=== PATIENT | female | born 1970 | race African-American/Black ===

== ENCOUNTER 2018-06-22 11:26 | Inpatient (IN) | payer OTHER ==
[2018-06-22 13:29] VITALS: BMI 26.7
--- NOTE | 2018-06-22 15:21 | HP ---
CIWA Score Nausea/Vomitin Muscle Tremors: 2 Anxiety: 2 Agitation: 2 Paroxysmal Sweats: 1-Minimal Palms Moist Orientation: 0-Oriented Tacttile Disturbances: 1-Very Mild Itch/Numbness Auditory Disturbances: 1-Very Mild Visual Disturbances: 1-Very Mild Sensitivity Headache: 2-Mild CIWA-Ar Total Score: 14 - Admission Criteria [facility] Guidelines: Admission for Medically Managed Detox: Requires at least one of the followin. CIWA greater than 12 2. Seizures within the past 24 hours 3. Delirium tremens within the past 24 hours 4. Hallucinations within the past 24 hours 5. Acute intervention needed for co occurring medical disorder 6. Acute intervention needed for co occurring psychiatric disorder 7. Severe withdrawal that cannot be handled at a lower level of care (continued vomiting, continued diarrhea, abnormal vital signs) requiring intravenous medication and/or fluids 8. Patient presents the following: CIWA greater than 12, Acute intervention needed for co-occurring med or psych disorder Admission Criteria Met: Admission criteria met Admission ROS S - HPI Chief Complaint: i need help to stop drinking alcohol and cocaine Allergies/Adverse Reactions: Allergies Allergy/AdvReac Type Severity Reaction Status Date / Time No Known Drug Allergies Allergy Verified 06/22/18 15:42 chicken derived AdvReac Severe Vomiting Verified 06/22/18 15:42 Fish Containing Products AdvReac Severe Vomiting Verified 06/22/18 15:42 History of Present Illness: this 48 years old female with alcohol and cocaine dependence,seeking detox, withdrawal symptom,last detox [facility] 04/19/15 to 04/29/15 hypertension on med nicotine dependence bipolar disorder longest period of sobriety 6 years Exam Limitations: No Limitations - Ebola screening Have you traveled outside of the country in the last 21 days: No Have you had contact with anyone from an Ebola affected area: No Have you been sick,other than usual withdrawal symptoms: No Do you have a fever: No - Review of Systems Constitutional: Loss of Appetite, Malaise, Night Sweats, Changes in sleep, Weakness, Unintentional Wgt. Loss EENT: reports: Nose Congestion Respiratory: reports: Other (asthma) Cardiac: reports: No Symptoms Reported GI: reports: Nausea, Poor Appetite, Abdominal cramping : reports: No Symptoms Reported Musculoskeletal: reports: Back Pain, Muscle Pain Integumentary: reports: Dryness Neuro: reports: Headache, Tremors Endocrine: reports: No Symptoms Reported Hematology: reports: No Symptoms Reported, See HPI, Anemia, Blood Clots, Easy Bleeding Psychiatric: reports: No Sypmtoms Reported, Judgement Intact, Mood/Affect Appropiate, Orientated x3, other (bipolar disorder) Other Systems: Reviewed and Negative Patient History - Patient Medical History Hx Asthma: Yes (childhood) Hx Chronic Obstructive Pulmonary Disease (COPD): No Hx Cancer: No Hx Cardiac Disorders: No Hx Congestive Heart Failure: No Hx Hypertension: Yes (dx 10 yrs) Hx Hypercholesterolemia: No Hx Pacemaker: No HX Cerebrovascular Accident: No Hx Seizures: No Hx Dementia: No Hx Diabetes: No Hx Gastrointestinal Disorders: No Hx Liver Disease: No Hx Genitourinary Disorders: No Hx Sexually Transmitted Disorders: No Hx Renal Disease (ESRD): No Hx Thyroid Disease: No Hx Human Immunodeficiency Virus (HIV): No (09/02 last negative) Hx Hepatitis C: No Hx Depression: No Hx Suicide Attempt: No Hx Bipolar Disorder: Yes Hx Schizophrenia: No Other Medical History: no sucidal,no homicidal - Patient Surgical History Hx Section: Yes (1999) Other Surgical History: hysterectomy for fibroid uterus Anesthesia Reaction: No - PPD History Previous Implant?: Yes Documented Results: Negative w/o proof Implanted On Prior [facility] Admission?: Yes Date: 04/25/15 Results: 0 mm PPD to be Administered?: Yes - Reproductive History Patient is a Female of Child Bearing Age (11 -55 yrs old): Yes Last Menstrual Period: 04/20/15 Patient : No - Smoking Cessation Smoking history: Current every day smoker Have you smoked in the past 12 months: Yes Aproximately how many cigarettes per day: 20 Hx Chewing Tobacco Use: No Initiated information on smoking cessation: Yes 'Breaking Loose' booklet given: 06/22/18 - Substance & Tx. History Hx Alcohol Use: Yes Hx Substance Use: Yes Substance Use Type: Alcohol, Cocaine Hx Substance Use Treatment: Yes ([facility] 04/19/15 to 04/29/15 rehab) - Substances Abused Alcohol Route: Oral Frequency: Daily Amount used: 1pint of rosendo/2 of 6 packs of 12 0zs of beer Age of first use: 14 Date of Last Use: 06/22/18 Cocaine Route: Smoking Frequency: Daily Amount used: 200$ Age of first use: 21 Date of Last Use: 06/22/18 Family Disease History - Family Disease History Family Disease History: Other: Father (no contact), Mother (alcohol,decesed) Admission Physical Exam [facility] - Vital Signs Vital Signs: Vital Signs - 24 hr 06/22/18 13:27 Temperature 98.3 F Pulse Rate 71 Respiratory 20 Rate Blood Pressure 185/107 H - Physical General Appearance: Yes: Moderate Distress, Tremorous, Irritable, Anxious HEENTM: Yes: Normal ENT Inspection, FAM, Pharynx Normal Respiratory: Yes: Lungs Clear, Normal Breath Sounds, No Respiratory Distress Neck: Yes: Within Normal Limits, Supple, Trachea in good position Breast: Yes: Breast Exam Deferred Cardiology: Yes: Within Normal Limits, Regular Rate, S1, S2 Abdominal: Yes: Within Normal Limits, Normal Bowel Sounds, Non Tender, Flat, Soft Genitourinary: Yes: Within Normal Limits Back: Yes: Muscle Spasm Musculoskeletal: Yes: Back pain, Muscle Pain Extremities: Yes: Within Normal Limits, Normal Range of Motion, Tremors Neurological: Yes: [employer] II-XII NML intact, Fully Oriented, Alert, Motor Strength 5/5 Integumentary: Yes: Dry Lymphatic: Yes: Within Normal Limits - Diagnostic (1) Alcohol dependence with uncomplicated withdrawal Status: Acute (2) Cocaine dependence Status: Chronic Qualifiers: Substance use status: uncomplicated Qualified Code(s): F14.20 - Cocaine dependence, uncomplicated (3) HTN (hypertension) Status: Chronic Qualifiers: Hypertension type: essential hypertension Qualified Code(s): I10 - Essential (primary) hypertension (4) Nicotine dependence Status: Chronic Qualifiers: Nicotine product type: cigarettes Substance use status: uncomplicated Qualified Code(s): F17.210 - Nicotine dependence, cigarettes, uncomplicated (5) Scoliosis Status: Chronic (6) Bronchial asthma Status: Chronic Qualifiers: Asthma severity: mild Asthma persistence: intermittent Asthma complication type: unspecified Qualified Code(s): J45.20 - Mild intermittent asthma, uncomplicated (7) Cervical radiculopathy Status: Acute (8) Arthritis Status: Acute (9) History of hysterectomy for benign disease Status: Acute (10) History of hysterectomy Status: Acute (11) Fibroid uterus Status: Acute Cleared for Admission [facility] - Detox or Rehab [facility] Level of Care: Medically Managed Detox Regimen/Protocol: Librium [facility] Breath Alcohol Content Breath Alcohol Content: 0 Urine Pregancy Test - Result Urine Test Results: Negative- NO Line Present Urine Drug Screen - Results Drug Screen Negative: No Urine Drug Screen Results: HARINDER-Cocaine
[2018-06-22] MEDS ORDERED: P-EPHED 60MG/TRIPROLIDI 2.5MG TABLET PO PRN (15:45)
[2018-06-22] MEDS ORDERED: IBUPROFEN 400 MG TABLET (FP) PO PRN (15:45)
[2018-06-22] MEDS ORDERED: ACETAMINOPHEN 325 MG TABLET (FP) PO PRN (15:45)
[2018-06-22] MEDS ORDERED: MAG HYDROX/AL HYDROX/SIMETH 30 ML UNIT-DOSE CUP PO PRN (15:45)
[2018-06-22] MEDS ORDERED: chlordiazePOXIDE HCL 25 MG CAPSULE PO PRN (15:45)
[2018-06-22] MEDS ORDERED: MAGNESIUM HYDROX 2400MG/30ML ORAL SUSPENSION 30 ML CUP PO PRN (15:45)
[2018-06-22] MEDS ORDERED: MENTHOL/PHENOL 1 EACH UD MM PRN (15:45)
[2018-06-22] MEDS ORDERED: LOPERAMIDE HCL 2 MG CAPSULE PO PRN (15:45)
[2018-06-22] MEDS ORDERED: guaiFENesin/D-METHORPHAN HB 10 ML UNIT-DOSE CUPS PO PRN (15:45)
[2018-06-22] MEDS ORDERED: hydrOXYzine PAMOATE 50 MG CAPSULE (FP) PO PRN (15:45)
[2018-06-22] MEDS ORDERED: MAGNESIUM CITRATE 300 ML BOTTLE PO PRN (15:45)
[2018-06-22] MEDS ORDERED: ALBUTEROL SO4 8 GM HFA INHALER IH PRN (15:50)
[2018-06-22] MEDS ORDERED: NAPROXEN 500 MG TABLET (FP) PO PRN (15:52)
[2018-06-22] MEDS ORDERED: cloNIDine HCL 0.1 MG TABLET PO ONE (16:00)
[2018-06-22] MEDS ORDERED: NICOTINE 21 MG/24 HOURS TOPICAL PATCH TD SCH (16:00)
[2018-06-22] MEDS ORDERED: amLODIPine BESYLATE 10 MG TABLET (FP) PO SCH (16:45)
[2018-06-22] MEDS: chlordiazePOXIDE HCL 25 MG CAPSULE PO SCH ×2 (18:17→23:24)
--- NOTE | 2018-06-22 21:29 | PN ---
[facility] Progress Note Note: Vital Signs Temperature 98.3 F 06/22/18 13:27 Pulse Rate 71 06/22/18 13:27 Respiratory Rate 20 06/22/18 13:27 Blood Pressure 185/107 H 06/22/18 13:27 O2 Sat by Pulse Oximetry (%) Patient c/o of midsternal chest pain, constant, "tight", 8/10, non-radiating, reports pain as elephant sitting on her chest. Patient with hx of HTN, asthma, alcohol dependence and cocaine dependence and schizophrenia. Last EKG 16:00 today + prolong qt 530/524, 59 bpm. PAUL on admission today = 0.00, v/s at this time 157/80, p70, rr18, p98.6 Patient Aox3, anxious and restless s1 s2 CP non-reproducible Full ROM ambulating in the unit skin intact Patient maurisioo Floydvic Peña for further evaluation, transported via [facility]press, endorsed to Vasquez Spann.
[2018-06-22 21:53] VITALS: BP 157/80; PULSE 70; TEMP 98.2
[2018-06-22] MEDS ORDERED: THIAMINE HCL 100 MG TABLET (FP) PO SCH (22:00)
[2018-06-22] MEDS ORDERED: MELATONIN 5 MG TABLETS PO PRN (22:00)
[2018-06-22 22:57] LABS: URINE APPEARANCE CLEAR; URINE BILIRUBIN NEGATIVE (<2.0 mg/dL); URINE COLOR LTYELLOW; URINE GLUCOSE (UA) NEGATIVE (NEGATIVE); URINE KETONE NEGATIVE (NEGATIVE); URINE LEUK ESTERASE NEGATIVE (NEGATIVE); URINE NITRITE NEGATIVE (NEGATIVE); URINE PROTEIN NEGATIVE (NEGATIVE); URINE UROBILINOGEN NEGATIVE mg/dL (0.2-1.0)
--- NOTE | 2018-06-23 06:26 | HP ---
CHIEF COMPLAINT: Chest pain x 1 day PCP: HISTORY OF PRESENT ILLNESS: Pt is a 48 yo F with signif PMHx of HTN, Asthma, multi substance abuse, PTSD, scoliosis, arthritis, who presented from [facility] with chest pain. Patient reports sudden onset of retro-sternal chest pain after eating dinner today, 10/ 10 severe enough have her bowed down and needing help standing up. Pt reports relief after belching shortly after waking up stating it offered slight relief. Patient reports burping once again stating the pain almost fully subsided but states staff told her it was protocol that she be sent to the ED for further evaluation. Denies nausea, vomiting. Denies trauma to affected area. Denies dysuria, hematuria. Denies diarrhea, constipation. Denies fevers, chills. Denies any other symptoms. Allergies: NKDA Social history: No smoking. Current alcohol use (Last use 5 days ago). Current crack cocaine use (Last use 8am this morning) Surgical history: C - section PMD: None ER course was notable for: (1) (2) (3) Recent Travel: PAST MEDICAL HISTORY: PAST SURGICAL HISTORY: Social History: Smoking: Alcohol: Drugs: Family History: Allergies No Known Drug Allergies Allergy (Verified 06/22/18 15:42) chicken derived Adverse Reaction (Severe, Verified 06/22/18 15:42) Vomiting Fish Containing Products Adverse Reaction (Severe, Verified 06/22/18 15:42) Vomiting HOME MEDICATIONS: Home Medications Medication Instructions Recorded Zolpidem Tartrate [Ambien -] 10 mg PO HS 04/19/15 Albuterol Sulfate Inhaler - 2 puff IH Q4H PRN #1 inhaler 04/29/15 [Ventolin HFA Inhaler -] Losartan/Hydrochlorothiazide 1 each PO DAILY 06/22/18 [Losartan-Hctz 50-12.5 mg Tab] Naproxen [Naprosyn -] 500 mg PO BID 06/22/18 Quetiapine Fumarate [Seroquel -] 200 mg PO HS 06/22/18 REVIEW OF SYSTEMS CONSTITUTIONAL: Absent: fever, chills, diaphoresis, generalized weakness, malaise, loss of appetite, weight change HEENT: Absent: rhinorrhea, nasal congestion, throat pain, throat swelling, difficulty swallowing, mouth swelling, ear pain, eye pain, visual changes CARDIOVASCULAR: Absent: chest pain, syncope, palpitations, irregular heart rate, lightheadedness , peripheral edema RESPIRATORY: Absent: cough, shortness of breath, dyspnea with exertion, orthopnea, wheezing, stridor, hemoptysis GASTROINTESTINAL: Absent: abdominal pain, abdominal distension, nausea, vomiting, diarrhea, constipation, melena, hematochezia GENITOURINARY: Absent: dysuria, frequency, urgency, hesitancy, hematuria, flank pain, genital pain MUSCULOSKELETAL: Absent: myalgia, arthralgia, joint swelling, back pain, neck pain SKIN: Absent: rash, itching, pallor HEMATOLOGIC/IMMUNOLOGIC: Absent: easy bleeding, easy bruising, lymphadenopathy, frequent infections ENDOCRINE: Absent: unexplained weight gain, unexplained weight loss, heat intolerance, cold intolerance NEUROLOGIC: Absent: headache, focal weakness or paresthesias, dizziness, unsteady gait, seizure, mental status changes, bladder or bowel incontinence PSYCHIATRIC: Absent: anxiety, depression, suicidal or homicidal ideation, hallucinations. PHYSICAL EXAMINATION Vital Signs - 24 hr 06/22/18 06/22/18 13:27 21:52 Temperature 98.3 F 98.2 F Pulse Rate 71 70 Respiratory 20 18 Rate Blood Pressure 185/107 H 157/80 GENERAL: Awake, alert, and fully oriented, in no acute distress. HEAD: Normal with no signs of trauma. EYES: Pupils equal, round and reactive to light, extraocular movements intact, sclera anicteric, conjunctiva clear. No lid lag. EARS, NOSE, THROAT: Ears normal, nares patent, oropharynx clear without exudates. Moist mucous membranes. NECK: Normal range of motion, supple without lymphadenopathy, JVD, or masses. LUNGS: Breath sounds equal, clear to auscultation bilaterally. No wheezes, and no crackles. No accessory muscle use. HEART: Regular rate and rhythm, normal S1 and S2 without murmur, rub or gallop. ABDOMEN: Soft, nontender, not distended, normoactive bowel sounds, no guarding, no rebound, no masses. No hepatomegaly or splenomegaly. MUSCULOSKELETAL: Normal range of motion at all joints. No bony deformities or tenderness. No CVA tenderness. UPPER EXTREMITIES: 2+ pulses, warm, well-perfused. No cyanosis. No clubbing. No peripheral edema. LOWER EXTREMITIES: 2+ pulses, warm, well-perfused. No calf tenderness. No peripheral edema. NEUROLOGICAL: Cranial nerves II-XII intact. Normal speech. Normal gait. PSYCHIATRIC: Cooperative. Good eye contact. Appropriate mood and affect. SKIN: Warm, dry, normal turgor, no rashes or lesions noted, normal capillary refill. Laboratory Results - last 24 hr 06/22/18 20:17 Urine Color Ltyellow Urine Appearance Clear Urine pH 7.0 D Ur Specific [place] 1.012 Urine Protein Negative Urine Glucose (UA) Negative Urine Ketones Negative Urine Blood Negative Urine Nitrite Negative Urine Bilirubin Negative Urine Urobilinogen Negative Ur Leukocyte Esterase Negative ASSESSMENT/PLAN:
[2018-06-23] MEDS ORDERED: PRENATAL VITAMINS W/ FOLIC ACID TABLET (FP) PO SCH (10:00)
[2018-06-23] MEDS ORDERED: LOSARTAN 50MG/HCTZ 12.5MG 1 TAB (FP) PO SCH (10:00)
[2018-06-23] MEDS ORDERED: chlordiazePOXIDE HCL 25 MG CAPSULE PO SCH (17:00)
[2018-06-24] MEDS ORDERED: chlordiazePOXIDE 5 MG CAPSULE PO SCH (17:00)
[2018-06-25] MEDS ORDERED: chlordiazePOXIDE HCL 10 MG CAPSULE PO SCH (17:00)
== END 2018-06-22 23:55 | disposition short-term general hospital (02) | DRG 897 ==
LOC: YASAS 11:26 → Y6N 15:36
PROC: HZ2ZZZZ Detoxification Services for Substance Abuse Treatment (ICD-10-PCS; principal; 2018-06-22)
DX: F10.230 Alcohol dependence with withdrawal, uncomplicated (principal); F14.20 Cocaine dependence, uncomplicated; F17.210 Nicotine dependence, cigarettes, uncomplicated; F20.9 Schizophrenia, unspecified; I10 Essential (primary) hypertension; P14.3 Other brachial plexus birth injuries; Z90.710 Acquired absence of both cervix and uterus
CPT/HCPCS: 81003; J0735

== ENCOUNTER 2018-06-22 21:57 | Inpatient (IN) | payer OTHER ==
[2018-06-22 23:04] VITALS: BMI 29.0
--- NOTE | 2018-06-22 23:29 | PDOC ---
History of Present Illness - General History Source: Patient Exam Limitations: No Limitations - History of Present Illness Initial Comments: 06/22/18 23:35 Patient is a 48 year old female with a significant past medical history of HTN, Asthma, multi substance abuse who presents to the ED with complaints of chest pain that began just prior to ED arrival. Patient reports sleeping when she was woken up from sleep with sudden mid sternal chest pain. She reports belching shortly after waking up stating it offered slight relief. Patient reports burping once again stating the pain almost fully subsided but states staff told her it was protocol that she be sent to the ED for further evaluation. Denies nausea, vomiting. Denies trauma to affected area. Denies dysuria, hematuria. Denies diarrhea, constipation. Denies fevers, chills. Denies any other symptoms. Allergies: NKDA Social history: No smoking. Current alcohol use (Last use 5 days ago). Current crack cocaine use (Last use 8am this morning) Surgical history: C - section PMD: None <Adrián Velazquez - Last Filed: 06/22/18 23:35> <Adolfo Jackson - Last Filed: 06/29/18 21:29> - General Chief Complaint: Chest Pain Stated Complaint: CHEST PAIN Past History <Adrián Velazquez - Last Filed: 06/22/18 23:35> - Past Medical History Asthma: Yes Cancer: No Cardiac Disorders: No CVA: No COPD: No CHF: No Dementia: No Diabetes: No GI Disorders: No Disorders: No HTN: Yes Hypercholesterolemia: No Kidney Stones: No Liver Disease: No Seizures: No Thyroid Disease: No - Surgical History Abdominal Surgery: No Appendectomy: No Cardiac Surgery: No Cholecystectomy: No Lung Surgery: No Neurologic Surgery: No Orthopedic Surgery: No - Reproductive History PID: No - Suicide/Smoking/Psychosocial Hx Smoking History: Unknown if ever smoked Have you smoked in the past 12 months: Yes Number of Cigarettes Smoked Daily: 20 'Breaking Loose' booklet given: 06/22/18 Hx Alcohol Use: Yes Drug/Substance Use Hx: Yes Substance Use Type: Alcohol, Cocaine Hx Substance Use Treatment: Yes <Adolfo Jackson - Last Filed: 06/29/18 21:29> - Past Medical History Allergies/Adverse Reactions: Allergies Allergy/AdvReac Type Severity Reaction Status Date / Time No Known Drug Allergies Allergy Verified 06/24/18 12:23 chicken derived AdvReac Severe Vomiting Verified 06/24/18 12:23 Fish Containing Products AdvReac Severe Vomiting Verified 06/24/18 12:23 Home Medications: Ambulatory Orders Zolpidem Tartrate [Ambien] 10 mg PO HS 04/19/15 Naproxen [Naprosyn -] 500 mg PO BID 06/22/18 Quetiapine Fumarate [Seroquel -] 200 mg PO HS 06/22/18 Albuterol Sulfate Inhaler - [Ventolin HFA Inhaler -] 2 puff IH Q4H PRN #1 inhaler 06/26/18 Amlodipine Besylate [Norvasc -] 10 mg PO DAILY #14 tablet 06/26/18 cloNIDine HCL [Catapres -] 0.2 mg PO BID #14 tablet 06/26/18 Quetiapine Fumarate [Seroquel] 100 mg PO HS #30 tablet 06/27/18 Albuterol Sulfate Inhaler - [Ventolin HFA Inhaler -] 2 puff IH Q4H PRN #1 inhaler 06/28/18 Amlodipine Besylate [Norvasc -] 10 mg PO DAILY #30 tablet 06/28/18 Clonidine HCl [Catapres] 0.2 mg PO BID #60 tablet 06/28/18 Hydrochlorothiazide 12.5 mg PO DAILY #30 tablet 06/28/18 Losartan Potassium [Cozaar -] 50 mg PO DAILY #30 tablet 06/28/18 Review of Systems - Review of Systems Able to Perform ROS?: Yes Comments:: 06/22/18 23:36 CONSTITUTIONAL: Absent: fever, no chills, no fatigue EYES: Absent: visual changes ENT: Absent: ear pain, no sore throat CARDIOVASCULAR: +Chest pain. Absent: no palpitations RESPIRATORY: Absent: cough, no SOB GI: Absent: abdominal pain, no nausea, no vomiting, no constipation, no diarrhea GENITOURINARY: Absent: dysuria, no frequency, no hematuria MUSCULOSKELETAL: Absent: back pain, no arthralgia, no myalgia SKIN: Absent: rash <Adrián Velazquez - Last Filed: 06/22/18 23:35> *Physical Exam - Vital Signs Last Vital Signs Temp Pulse Resp BP Pulse Ox 97.7 F 66 19 119/62 100 06/22/18 22:00 06/22/18 22:00 06/22/18 22:00 06/22/18 22:00 06/22/18 22:00 - Physical Exam Comments: 06/22/18 23:36 GENERAL: Well-appearing, well-nourished. No apparent distress. HEENT: Normocephalic, atraumatic. PERRL, EOM intact. CARDIOVASCULAR: Normal S1, S2. Regular rate and rhythm. PULMONARY: Clear to auscultation bilaterally. ABDOMEN: Soft, non-distended, non-tender. EXTREMITIES: Normal ROM in all four extremities. No gross deformities. SKIN: Warm, dry. No rash NEUROLOGICAL: No focal neurological deficits. <Adrián Velazquez - Last Filed: 06/22/18 23:35> - Vital Signs Last Vital Signs Temp Pulse Resp BP Pulse Ox 97.7 F 66 19 119/62 100 06/22/18 22:00 06/22/18 22:00 06/22/18 22:00 06/22/18 22:00 06/22/18 22:00 <Adolfo Jackson - Last Filed: 06/29/18 21:29> ED Treatment Course - LABORATORY CBC & Chemistry Diagram: 06/23/18 08:05 06/23/18 01:51 <Adolfo Jackson - Last Filed: 06/29/18 21:29> Medical Decision Making - Medical Decision Making 06/22/18 23:51 Patient with PSA sent from [facility] for evaluation of chest pain. Patient was USOH until shortly before presentation. She stated to staff that she fell a chest pressure that improved when she changed to a looser shirt and after belching. Pt endorses smoking crack cocain this morning at 8am, last etoh ingestion was several days ago. atypical cp, likely 2/2 gi complaints. unlikely cocaine associated chest, symptom onset much >3h after ingestion, no co-ingestion of etoh. pt currently denies any symptoms f/u ekg if no abnormalities dc to rehab 06/23/18 01:17 EKG consistent with lateral ischemia but unchanged from prior EKG on 04/2015 QTc is 528 with HR of 52 will send for labs to evaluate for electrolyte abnormalities and tx with magnesium Available med list does not include any medications that prolong qt f/u lab results, repeat ekg likely admit 06/23/18 04:26 pain free but now with positive troponin benzos on board will give ASA admit to tele 06/23/18 06:05 Dr. Mckee of cardiology consulted at 5am <Adolfo Jackson - Last Filed: 06/29/18 21:29> *DC/Admit/Observation/Transfer - Attestations Scribe Attestion: 06/22/18 23:36 Documentation prepared by Adrián Velazquez, acting as medical office receptionist assistant for Adolfo Jackson MD. <Adrián Velazquez - Last Filed: 06/22/18 23:35> <Adolfo Jackson - Last Filed: 06/29/18 21:29> Diagnosis at time of Disposition: Chest pain Qualifiers: Chest pain type: unspecified Qualified Code(s): R07.9 - Chest pain, unspecified - Discharge Dispostion Disposition: HOME Condition at time of disposition: Good
[2018-06-23] MEDS ORDERED: MAGNESIUM SULF 50% (8.12 MEQ/2 ML-1 GM VIAL) IVPB ONE (01:16)
[2018-06-23 01:58] LABS: BASO % 1.1 % (0-2.0); EOS % 4.9 % (0-4.5); HEMATOCRIT 34.9 % (32.4-45.2); HEMOGLOBIN 11.7 GM/dL (10.7-15.3); LYMPH % 39.9 % (8-40); MCH 28.8 pg (25.7-33.7); MCHC 33.7 g/dl (32.0-36.0); MEAN CELL VOLUME 85.7 fl (80-96); MEAN PLT VOLUME 9.7 fl (7.5-11.1); MONO % 7.6 % (3.8-10.2); NEUT % 46.5 % (42.8-82.8); PLATELET COUNT 197 K/MM3 (134-434); RBC 4.08 M/mm3 (3.60-5.2); RDW 13.7 % (11.6-15.6); WHITE BLOOD COUNT 5.7 K/mm3 (4.0-10.0)
[2018-06-23 02:17] LABS: INR 0.91 (0.83-1.09); PROTHROMBIN TIME (PATIENT) 10.7 SEC (9.7-13.0)
[2018-06-23 02:29] LABS: ALBUMIN 3.5 g/dl (3.4-5.0); ALK PHOS 169 U/L (45-117); ANION GAP 6 MMOL/L (8-16); BILIRUBIN,TOTAL 0.3 mg/dL (0.2-1); BLOOD UREA NITROGEN 20 mg/dL (7-18); CALCIUM 8.3 mg/dL (8.5-10.1); CHLORIDE 101 mmol/L (98-107); CO2 32 mmol/L (21-32); CREATININE 1.1 mg/dL (0.55-1.3); GLUCOSE,RANDOM 101 mg/dL (74-106); MAGNESIUM 2.1 mg/dL (1.8-2.4); POTASSIUM 3.6 mmol/L (3.5-5.1); SGOT/AST 25 U/L (15-37); SGPT/ALT 19 U/L (13-61); SODIUM 139 mmol/L (136-145); TOT PROT 6.6 g/dl (6.4-8.2)
[2018-06-23] MEDS ORDERED: MAGNESIUM 1GM/D5W - 2 GM/200 ML IVPB IVPB ONE (02:32)
[2018-06-23] MEDS ORDERED: ASPIRIN 325 MG TABLET PO ONE (03:22)
[2018-06-23] MEDS ORDERED: ASPIRIN 325 MG TABLET ONE (03:29)
--- NOTE | 2018-06-23 05:57 | PN ---
Teaching Attending Note Name of Resident: Anjelica Hahn ATTENDING PHYSICIAN STATEMENT I saw and evaluated the patient. I reviewed the resident's note and discussed the case with the resident. I agree with the resident's findings and plan as documented. SUBJECTIVE: Patient is a 48 year old woman with a PMH HTN, Asthma, polysubstance abuse ( cocaine, etc), alcohol abuse, tobacco use, PTSD and Bipolar disorder who presents to the ER with complaints of chest pain that began just prior to ER arrival. Had used cocaine today and went to [facility] fo Detox. Patient was woken up from sleep with sudden mid sternal chest pain. She reports belching shortly after waking up stating it offered slight relief. Patient reports burping once again stating the pain almost fully subsided but states staff told her it was protocol that she be sent to the ER for further evaluation. Was painfree by the time she arrived the ER, but her initial troponin was elevated. OBJECTIVE: Alert and appears manic, but in no acute distress Vital Signs Period Temp Pulse Resp BP Sys/Pastor Pulse Ox Last 24 Hr 97.5 F-97.7 F 52-66 16-20 119-136/62-78 100-100 HEENT: No Jaundice, eye redness or discharge, PERRLA, EOMI. Normocephalic, atraumatic. External ears are normal and hearing is grossly intact. No nasal discharge. Neck: Supple, nontender. No palpable adenopathy or thyromegaly. No JVD Chest: Good effort. Clear to auscultation and percussion. Heart: Regular. No S3, rub or murmur Abdomen: Not distended, soft, nontender and no HSM. No rebound or guarding. Normoactive bowel sounds. Ext: Peripheral pulses intact. No leg edema. Skin: Warm and dry. No petechiae, rash or ecchymosis. Neuro: Alert. Oriented x3. CN 2-12 grossly intact. Sensation grossly intact in all four extremities and DTR are symmetric. Home Medications Medication Instructions Recorded Zolpidem Tartrate [Ambien -] 10 mg PO HS 04/19/15 Albuterol Sulfate Inhaler - 2 puff IH Q4H PRN #1 inhaler 04/29/15 [Ventolin HFA Inhaler -] Losartan/Hydrochlorothiazide 1 each PO DAILY 06/22/18 [Losartan-Hctz 50-12.5 mg Tab] Naproxen [Naprosyn -] 500 mg PO BID 06/22/18 Quetiapine Fumarate [Seroquel -] 200 mg PO HS 06/22/18 Abnormal Lab Results 06/23/18 06/23/18 01:51 01:51 Eosinophils % 4.9 H Anion Gap 6 L BUN 20 H Calcium 8.3 L Alkaline Phosphatase 169 H Creatine Kinase 303 H CK-MB (CK-2) 5.1 H Troponin I 0.14 H ASSESSMENT AND PLAN: 1. Chest pain, rule out NSTEMI - EKG shows LVH with nonspecific t wave changes. Initial troponin of 0.14 may signal reversible effect of cocaine. Will get repeat troponin and EKG; ECHO, CXR, monitor her on telemetry and get fasting lipids. If repeat troponin is significantly elevated, will commence therapy for NSTEMI. Cardiology being consulted. 2. Tobacco Use/Polysusbstance abuse We will provide patient all the necessary assistance to facilitate smoking cessation and prescribe Nicotine patch. Counseled to stop using illicit drugs. Refer to Detox upon discharge. 3. Alcohol abuse - Implement [facility] alcohol withdrawal protocol, fall and aspiration precautions. Treat with thiamine and folic acid and monitor electrolytes (Ca,Mg,K,P). [employer] patient about abstaining from alcohol and refer to alcohol detox upon discharge. 4. DVT prophylaxis - Lovenox 40 mg SQ q 24 hours. 5. Advance directives - Full code
--- NOTE | 2018-06-23 06:40 | HP ---
CHIEF COMPLAINT: Chest pain x 1 day PCP: HISTORY OF PRESENT ILLNESS: Pt is a 48 yo F with signif PMHx of HTN, PTSD (following abuse), Asthma, multi substance abuse, bipolar disorder, scoliosis, arthritis who presented from [facility] overnight for chest pain. Patient reports sudden retrosternal chest pain, 10/10, severe enough to have her bowed down and needing support to stand. No diaphoresis, SOB, or radiation. It was improved by belching and finally relieved by a second belch. However EMS had been activated and patient was brought to the ED. She reports use of $60 dollars worth of cocaine prior to presentation at [facility] for detox. She had also used alcohol prior to her presentation at [facility]. By the time she arrived in ED, the chest pain had resolved. There was no nausea/vomiting/no trauma. Denies dysuria, hematuria. Denies diarrhea, constipation. Denies fevers, chills. Denies any other symptoms. ER course was notable for: (1) EKG- 52bpm, nonspecific ST abnormality (had T wave abnormality in past), QTC -528 increased from past of 468 (2) trop 0.14 (3) ASA Recent Travel: PAST MEDICAL HISTORY: PAST SURGICAL HISTORY: Surgical history: C - section Social History: Smokin pack/day Alcohol:yes last use day before, 8am Drugs: Cocaine Family History: Allergies No Known Drug Allergies Allergy (Verified 06/22/18 15:42) chicken derived Adverse Reaction (Severe, Verified 06/22/18 15:42) Vomiting Fish Containing Products Adverse Reaction (Severe, Verified 06/22/18 15:42) Vomiting HOME MEDICATIONS: Home Medications Medication Instructions Recorded Zolpidem Tartrate [Ambien -] 10 mg PO HS 04/19/15 Albuterol Sulfate Inhaler - 2 puff IH Q4H PRN #1 inhaler 04/29/15 [Ventolin HFA Inhaler -] Losartan/Hydrochlorothiazide 1 each PO DAILY 06/22/18 [Losartan-Hctz 50-12.5 mg Tab] Naproxen [Naprosyn -] 500 mg PO BID 06/22/18 Quetiapine Fumarate [Seroquel -] 200 mg PO HS 06/22/18 REVIEW OF SYSTEMS CONSTITUTIONAL: Absent: fever, chills, diaphoresis, generalized weakness, malaise, loss of appetite, weight change HEENT: Absent: rhinorrhea, nasal congestion, throat pain, throat swelling, difficulty swallowing, mouth swelling, ear pain, eye pain, visual changes CARDIOVASCULAR: Absent: chest pain, syncope, palpitations, irregular heart rate, lightheadedness , peripheral edema RESPIRATORY: Absent: cough, shortness of breath, dyspnea with exertion, orthopnea, wheezing, stridor, hemoptysis GASTROINTESTINAL: Absent: abdominal pain, abdominal distension, nausea, vomiting, diarrhea, constipation, melena, hematochezia GENITOURINARY: Absent: dysuria, frequency, urgency, hesitancy, hematuria, flank pain, genital pain MUSCULOSKELETAL: Absent: myalgia, arthralgia, joint swelling, back pain, neck pain SKIN: Absent: rash, itching, pallor HEMATOLOGIC/IMMUNOLOGIC: Absent: easy bleeding, easy bruising, lymphadenopathy, frequent infections ENDOCRINE: Absent: unexplained weight gain, unexplained weight loss, heat intolerance, cold intolerance NEUROLOGIC: Absent: headache, focal weakness or paresthesias, dizziness, unsteady gait, seizure, mental status changes, bladder or bowel incontinence PSYCHIATRIC: Absent: anxiety, depression, suicidal or homicidal ideation, hallucinations. PHYSICAL EXAMINATION Vital Signs - 24 hr 06/22/18 06/22/18 06/23/18 22:00 23:15 05:49 Temperature 97.7 F 97.6 F 97.5 F L Pulse Rate 66 Pulse Rate [ 58 L 52 L Right Brachial] Respiratory 19 20 16 Rate Blood Pressure 119/62 Blood Pressure 136/78 121/62 [Left] O2 Sat by Pulse 100 100 100 Oximetry (%) GENERAL: Awake, alert, and fully oriented, in no acute distress. HEAD: Normal with no signs of trauma. EYES: Pupils equal, round and reactive to light, extraocular movements intact, sclera anicteric, conjunctiva clear. No lid lag. EARS, NOSE, THROAT: Moist mucous membranes. LUNGS: Breath sounds equal, clear to auscultation bilaterally. No wheezes, and no crackles. HEART: Regular rate and rhythm, normal S1 and S2 without murmur, rub or gallop. ABDOMEN: Soft, nontender, not distended, normoactive bowel sounds, no guarding, no rebound, no masses. MUSCULOSKELETAL: Normal range of motion at all joints. No bony deformities or tenderness. No CVA tenderness. LOWER EXTREMITIES: 2+ pulses, warm, well-perfused. No calf tenderness. No peripheral edema. NEUROLOGICAL: Cranial nerves II-XII intact. Normal speech. Normal gait. PSYCHIATRIC: Cooperative. Good eye contact. Appropriate mood and affect. CBC, BMP 06/23/18 01:51 06/23/18 01:51 Laboratory Results - last 24 hr 06/23/18 06/23/18 06/23/18 01:51 01:51 01:51 WBC 5.7 RBC 4.08 Hgb 11.7 Hct 34.9 MCV 85.7 MCH 28.8 MCHC 33.7 RDW 13.7 Plt Count 197 MPV 9.7 Absolute Neuts (auto) 2.6 Neutrophils % 46.5 Lymphocytes % 39.9 Monocytes % 7.6 Eosinophils % 4.9 H Basophils % 1.1 Nucleated RBC % 0 PT with INR 10.70 INR 0.91 Sodium 139 Potassium 3.6 Chloride 101 Carbon Dioxide 32 Anion Gap 6 L BUN 20 H Creatinine 1.1 Creat Clearance w eGFR 52.58 Random Glucose 101 Calcium 8.3 L Magnesium 2.1 Total Bilirubin 0.3 AST 25 ALT 19 Alkaline Phosphatase 169 H Creatine Kinase 303 H Creatine Kinase Index 1.6 CK-MB (CK-2) 5.1 H Troponin I 0.14 H Total Protein 6.6 Albumin 3.5 Ambulatory Orders Zolpidem Tartrate [Ambien -] 10 mg PO HS 04/19/15 Albuterol Sulfate Inhaler - [Ventolin HFA Inhaler -] 2 puff IH Q4H PRN #1 inhaler 04/29/15 Losartan/Hydrochlorothiazide [Losartan-Hctz 50-12.5 mg Tab] 1 each PO DAILY 03/02 Naproxen [Naprosyn -] 500 mg PO BID 06/22/18 Quetiapine Fumarate [Seroquel -] 200 mg PO HS 06/22/18 ASSESSMENT/PLAN: Pt is a 48 yo F with signif PMHx of HTN, PTSD (following abuse), Asthma, multi substance abuse, bipolar disorder, scoliosis, arthritis who presented from [facility] overnight for chest pain with hx of recent cocaine ingestion, resolved chest pain but elevated trops Chest pain R/O ACS cocaine ingestion, resolved chest pain but elevated trops Trend trops, Repeat EKG Cardiol consult ECHO ASA daily lipid profile Lipitor 40mg HS (elevated CK) HTN Needs med rec Avoid Beta blockers with ongoing cocaine use Asthma, Not in exacerbation Cont albuterol PRN multi substance abuse, Recent cocaine, alcohol and cigarette use To follow up in [facility] Thiamine , b12 Hold banana bag for now with R/O ACS Avoid beta blockers Detox Librium protocol- CIWA-5 (mod tactile complaints, mild agitation,, mild anxiety) Fall precautions bipolar disorder/PTSD (following abuse), Pt reports taking seroquel scoliosis/arthritis Stable, monitor FEN No standing fluids Monitor lytes, replete as needed monitor for withdrawal otherwise sodium controlled diet PPX lovenox sq Dispo: Tele obs for transfer back to [facility] if ACS ruled out Visit type - Emergency Visit Emergency Visit: Yes ED Registration Date: 06/23/18 Care time: The patient presented to the Emergency Department on the above date and was hospitalized for further evaluation of their emergent condition. - New Patient This patient is new to me today: Yes Date on this admission: 06/23/18 - Critical Care Critical Care patient: No
--- NOTE | 2018-06-23 07:20 | DS ---
[facility] Detox Discharge Summary Admission Date: 06/23/18 Discharge Date: 06/23/18 - History Present History: Alcohol Dependence, Cocaine Dependence Pertinent Past History: htn, scoliosis, bipolar, asthma nicotine dep - Physical Exam Results Vital Signs: Vital Signs Temperature 97.5 F L 06/23/18 05:49 Pulse Rate 52 L 06/23/18 05:49 Respiratory Rate 16 06/23/18 05:49 Blood Pressure 121/62 06/23/18 05:49 O2 Sat by Pulse Oximetry (%) 100 06/23/18 05:49 Pertinent Admission Physical Exam Findings: withdrawal sx's - Treatment Hospital Course: Detox Protocol Followed Patient has Accepted a Rehab Referral to: client transferred to [facility] where she was admiited for c.p. - Medication Discharge Medications: Ambulatory Orders Zolpidem Tartrate [Ambien -] 10 mg PO HS 04/19/15 Albuterol Sulfate Inhaler - [Ventolin HFA Inhaler -] 2 puff IH Q4H PRN #1 inhaler 04/29/15 Losartan/Hydrochlorothiazide [Losartan-Hctz 50-12.5 mg Tab] 1 each PO DAILY 03/02 Naproxen [Naprosyn -] 500 mg PO BID 06/22/18 Quetiapine Fumarate [Seroquel -] 200 mg PO HS 06/22/18 - Diagnosis (1) Alcohol dependence with uncomplicated withdrawal Current Visit: Yes Status: Acute (2) Bipolar 1 disorder Current Visit: Yes Status: Chronic (3) Bronchial asthma Current Visit: Yes Status: Chronic Qualifiers: Asthma severity: mild Asthma persistence: intermittent Asthma complication type: unspecified Qualified Code(s): J45.20 - Mild intermittent asthma, uncomplicated (4) Cocaine dependence Current Visit: Yes Status: Chronic Qualifiers: Substance use status: uncomplicated Qualified Code(s): F14.20 - Cocaine dependence, uncomplicated (5) HTN (hypertension) Current Visit: Yes Status: Chronic Qualifiers: Hypertension type: essential hypertension Qualified Code(s): I10 - Essential (primary) hypertension (6) Nicotine dependence Current Visit: Yes Status: Chronic Qualifiers: Nicotine product type: cigarettes Substance use status: uncomplicated Qualified Code(s): F17.210 - Nicotine dependence, cigarettes, uncomplicated (7) Scoliosis Current Visit: Yes Status: Chronic - AMA Did Patient Leave Against Medical Advice: No (admitted to [facility])
[2018-06-23] MEDS ORDERED: chlordiazePOXIDE HCL 25 MG CAPSULE PO PRN ×2 (07:24→17:11)
[2018-06-23] MEDS ORDERED: ALBUTEROL SO4 8 GM HFA INHALER IH PRN (07:29)
[2018-06-23 08:18] LABS: BASO % 1.1 % (0-2.0); EOS % 5.6 % (0-4.5); HEMOGLOBIN 11.9 GM/dL (10.7-15.3); LYMPH % 42.9 % (8-40); MCH 29.3 pg (25.7-33.7); MCHC 33.9 g/dl (32.0-36.0); MEAN CELL VOLUME 86.2 fl (80-96); MEAN PLT VOLUME 9.8 fl (7.5-11.1); NEUT % 44.4 % (42.8-82.8); PLATELET COUNT 189 K/MM3 (134-434); RBC 4.07 M/mm3 (3.60-5.2); WHITE BLOOD COUNT 5.8 K/mm3 (4.0-10.0)
--- NOTE | 2018-06-23 08:20 | PN ---
Teaching Attending Note Name of Resident: Bashir Sesay ATTENDING PHYSICIAN STATEMENT I saw and evaluated the patient. I reviewed the resident's note and discussed the case with the resident. I agree with the resident's findings and plan as documented. SUBJECTIVE: Patient is comfortable with no acute distress. wants to go back to detox. OBJECTIVE: Vital Signs Temperature 97.5 F L 06/23/18 05:49 Pulse Rate 52 L 06/23/18 07:56 Respiratory Rate 16 06/23/18 05:49 Blood Pressure 121/62 06/23/18 05:49 O2 Sat by Pulse Oximetry (%) 96 06/23/18 07:56 GENERAL: Awake, alert, and fully oriented, in no acute distress. HEAD: Normal with no signs of trauma. EYES: Pupils equal, round and reactive to light, extraocular movements intact, sclera anicteric, conjunctiva clear. EARS, NOSE, THROAT: Moist mucous membranes. LUNGS: Breath sounds equal, clear to auscultation bilaterally. No wheezes, and no crackles. HEART: Regular rate and rhythm, normal S1 and S2 without murmur, rub or gallop. ABDOMEN: Soft, nontender, not distended, normoactive bowel sounds, no guarding, no rebound, no masses. MUSCULOSKELETAL: Normal range of motion at all joints. No bony deformities or tenderness. No CVA tenderness. EXTREMITIES: 2+ pulses, warm, well-perfused. No calf tenderness. No peripheral edema. NEUROLOGICAL: Cranial nerves II-XII intact. Normal speech. Normal gait. PSYCHIATRIC: Cooperative. Good eye contact. Appropriate mood and affect. CBCD WBC 5.7 K/mm3 (4.0-10.0) 06/23/18 01:51 RBC 4.08 M/mm3 (3.60-5.2) 06/23/18 01:51 Hgb 11.7 GM/dL (10.7-15.3) 06/23/18 01:51 Hct 34.9 % (32.4-45.2) 06/23/18 01:51 MCV 85.7 fl (80-96) 06/23/18 01:51 MCHC 33.7 g/dl (32.0-36.0) 06/23/18 01:51 RDW 13.7 % (11.6-15.6) 06/23/18 01:51 Plt Count 197 K/MM3 (134-434) 06/23/18 01:51 MPV 9.7 fl (7.5-11.1) 06/23/18 01:51 CMP Sodium 139 mmol/L (136-145) 06/23/18 01:51 Potassium 3.6 mmol/L (3.5-5.1) 06/23/18 01:51 Chloride 101 mmol/L (98-107) 06/23/18 01:51 Carbon Dioxide 32 mmol/L (21-32) 06/23/18 01:51 Anion Gap 6 MMOL/L (8-16) L 06/23/18 01:51 BUN 20 mg/dL (7-18) H 06/23/18 01:51 Creatinine 1.1 mg/dL (0.55-1.3) 06/23/18 01:51 Creat Clearance w eGFR 52.58 (>60) 06/23/18 01:51 Random Glucose 101 mg/dL (74-106) 06/23/18 01:51 Calcium 8.3 mg/dL (8.5-10.1) L 06/23/18 01:51 Total Bilirubin 0.3 mg/dL (0.2-1) 06/23/18 01:51 AST 25 U/L (15-37) 06/23/18 01:51 ALT 19 U/L (13-61) 06/23/18 01:51 Alkaline Phosphatase 169 U/L (45-117) H 06/23/18 01:51 Total Protein 6.6 g/dl (6.4-8.2) 06/23/18 01:51 Albumin 3.5 g/dl (3.4-5.0) 06/23/18 01:51 CARDIAC ENZYMES Creatine Kinase 303 IU/L (26-192) H 06/23/18 01:51 Troponin I 0.14 ng/ml (0.00-0.05) H 06/23/18 01:51 Current Medications Generic Name Dose Route Start Last Admin Trade Name Freq PRN Reason Stop Dose Admin Albuterol Sulfate 2 puff 06/23/18 07:29 Ventolin Hfa Inhaler - IH Q4H PRN SHORT OF BREATH/WHEEZING Aspirin 81 mg 06/23/18 10:00 Ecotrin - PO DAILY SANA Chlordiazepoxide HCl 50 mg 06/23/18 08:30 Librium - PO 06/23/18 23:01 [id number] SANA Chlordiazepoxide HCl 25 mg 06/24/18 05:00 Librium - PO 06/24/18 23:01 [id number] SANA Chlordiazepoxide HCl 15 mg 06/25/18 05:00 Librium - PO 06/25/18 23:01 [id number] SANA Chlordiazepoxide HCl 25 mg 06/23/18 07:24 Librium - PO 06/26/18 07:23 Q4H PRN WITHDRAWAL(CONT SUBST) Chlordiazepoxide HCl 10 mg 06/26/18 05:00 Librium - PO 06/26/18 23:01 [id number] [facility] Cyanocobalamin 100 mcg 06/23/18 10:00 Vitamin B12 - PO DAILY [facility] Enoxaparin Sodium 40 mg 06/23/18 10:00 Lovenox - SQ DAILY [facility] HCTZ/Losartan Potassium 1 tab 06/23/18 10:00 Hyzaar - PO DAILY [facility] Non-Formulary Medication 10 mg 06/23/18 22:00 Zolpidem Tartrate PO HS [facility] Quetiapine Fumarate 200 mg 06/23/18 22:00 Seroquel - PO HS [facility] Thiamine HCl 100 mg 06/23/18 10:00 Vitamin B1 - PO DAILY [facility] Home Medications Medication Instructions Recorded Zolpidem Tartrate [Ambien -] 10 mg PO HS 04/19/15 Albuterol Sulfate Inhaler - 2 puff IH Q4H PRN #1 inhaler 04/29/15 [Ventolin HFA Inhaler -] Losartan/Hydrochlorothiazide 1 each PO DAILY 06/22/18 [Losartan-Hctz 50-12.5 mg Tab] Naproxen [Naprosyn -] 500 mg PO BID 06/22/18 Quetiapine Fumarate [Seroquel -] 200 mg PO HS 06/22/18 ASSESSMENT AND PLAN: Patient is a 48 year old woman with a PMH HTN, Asthma, polysubstance abuse ( cocaine, etc), alcohol abuse, tobacco use, PTSD and Bipolar disorder who presents to the ER with complaints of chest pain. # Acute Chest pain, rule out ACS , cardio consult appreciated #Tobacco Use/Polysusbstance abuse smoking cessation # Alcohol abuse - on Detox protocol, will add thiamin, folic acid DVT prophylaxis - Lovenox 40 mg SQ q 24 hours. Advance directives - Full code
[2018-06-23] MEDS ORDERED: chlordiazePOXIDE HCL 25 MG CAPSULE ONE ×2 (08:37→12:24)
[2018-06-23] MEDS ORDERED: PT OWN MED DRAWER 7, Y5N ONE ×2 (08:38→09:58)
[2018-06-23] MEDS: chlordiazePOXIDE HCL 25 MG CAPSULE PO SCH ×4 (08:39→22:40)
[2018-06-23 08:46] LABS: INR 0.92 (0.83-1.09); PROTHROMBIN TIME (PATIENT) 10.9 SEC (9.7-13.0)
[2018-06-23 08:48] LABS: ACTIVATED PTT 30.2 SECONDS (25.2-36.5); MAGNESIUM 2.5 mg/dL (1.8-2.4); PHOSPHOROUS 4.4 mg/dL (2.5-4.9)
[2018-06-23] MEDS ORDERED: ENOXAPARIN NA (PORCINE) 40 MG/0.4 ML DISP.SYRIN SQ ONE (09:29)
[2018-06-23] MEDS ORDERED: ASPIRIN COATED 81 MG TABLET.EC ONE (09:29)
[2018-06-23] MEDS: ASPIRIN COATED 81 MG TABLET.EC PO SCH (09:30)
[2018-06-23] MEDS: CYANOCOBALAMIN (VITAMIN B-12) 100 MCG TABLET PO SCH (09:31)
[2018-06-23] MEDS: THIAMINE HCL 100 MG TABLET (FP) PO SCH (09:31)
[2018-06-23] MEDS: ENOXAPARIN NA (PORCINE) 40 MG/0.4 ML DISP.SYRIN SQ SCH (09:31)
[2018-06-23] MEDS: NICOTINE 7 MG/24 HOURS TOPICAL PATCH TD SCH (09:59)
[2018-06-23] MEDS: LOSARTAN 50MG/HCTZ 12.5MG 1 TAB (FP) PO SCH (09:59)
--- NOTE | 2018-06-23 11:08 | EKG ---
Test Reason : Blood Pressure : / mmHG Vent. Rate : 052 BPM Atrial Rate : 052 BPM P-R Int : 198 ms QRS Dur : 096 ms QT Int : 568 ms P-R-T Axes : 048 006 122 degrees QTc Int : 528 ms SINUS BRADYCARDIA LEFT VENTRICULAR HYPERTROPHY WITH REPOLARIZATION ABNORMALITY NONSPECIFIC ST ABNORMALITY PROLONGED QT ABNORMAL ECG WHEN COMPARED WITH ECG OF 22-JUN-2018 18:54, T WAVE INVERSION NO LONGER EVIDENT IN ANTERIOR LEADS Confirmed by CAMILA CANELA, FALLON ([id number]) on 06/23/2018 11:07:36 AM Referred By: Confirmed By:FALLON JENSEN MD
--- NOTE | 2018-06-23 12:25 | ECHO ---
Name: DANIELLE VERA Exam:Adult Echocardiogram Study Date: 06/23/2018 11:18 AM Age: 48 yrs Reason For Study: TROPONIN LEVEL Height: 66 in Weight: 180 lb BSA: 1.9 m2 MMode/2D Measurements & Calculations IVSd: 0.98 cm Ao root diam: 2.2 cm LVIDd: 4.8 cm LA dimension: 3.7 cm LVIDs: 3.6 cm LVPWd: 1.4 cm EDV(Teich): 109.0 ml ESV(Teich): 54.3 ml Doppler Measurements & Calculations MV E max jey: 75.0 cm/sec TR max jey: 181.1 cm/sec MV A max jey: 90.3 cm/sec TR max P.2 mmHg MV E/A: 0.83 MV dec time: 0.35 sec Med Peak E' Jye: 2.5 cm/sec Med E/e': 30.5 Lat Peak E' Jey: 2.4 cm/sec Lat E/e': 31.1 Procedure A complete two-dimensional transthoracic echocardiogram was performed (2D, M-mode, Doppler and color flow Doppler). Left Ventricle There is moderate concentric left ventricular hypertrophy. The left ventricular ejection fraction is normal. Ejection Fraction = 55-60%. The left ventricular wall motion is normal. Right Ventricle The right ventricle is normal in size and function. Atria Normal left and right atrial size and function. Mitral Valve There is trace mitral regurgitation. Tricuspid Valve There is trace tricuspid regurgitation. There was insufficient TR detected to calculate RV systolic p ressure. Aortic Valve No hemodynamically significant valvular aortic stenosis. No aortic regurgitation is present. Pulmonic Valve There is no pulmonic valvular regurgitation. Great Vessels The aortic root is normal size. Pericardium/Pleura There is no pericardial effusion. Interpretation Summary There is moderate concentric left ventricular hypertrophy. The left ventricular ejection fraction is normal. The right ventricle is normal in size and function. There is trace mitral regurgitation. There is trace tricuspid regurgitation. MD Tito Muniz 06/23/2018 12:25 PM
--- NOTE | 2018-06-23 14:21 | CONSULT ---
Consultation: REQUESTING PROVIDER: Dr Sorto CONSULT REQUEST: We have been asked to medically evaluate this patient for chest pain. HISTORY OF PRESENT ILLNESS: The patient is a 48 year old female with a PMH of HTN, polysubstance abuse ( cocaine, alcohol, tabacco), PTSD, anxiety, bipolar disorder that was brought to the hospital from [facility] for chest pain. The patient was admitted yesterday for detox, last cocaine use was yesterday morning. In the evening after she woke up, she started having mid sternal chest pain that resolved immediately with belching x 2. She states that according to [facility] protocol, she had to be transferred to [facility] for evaluation. The patient was also hospitalized in "other hospital in [facility]" for hypertension 5 days ago. She states that her BP was over 200, was given medication and left. When I saw the patient earlier today, she was tearful but not complaining of chest pain, palpitations, SOB, dizziness, syncope. She never had stress test, cardiology eval. REVIEW OF SYSTEMS: CONSTITUTIONAL: Absent: fever, chills, diaphoresis, generalized weakness HEENT: Absent: rhinorrhea, nasal congestion CARDIOVASCULAR: Absent: chest pain, syncope, palpitations, irregular heart rate, lightheadedness , peripheral edema RESPIRATORY: Absent: cough, shortness of breath, dyspnea with exertion GASTROINTESTINAL: Absent: abdominal pain, abdominal distension, nausea, vomiting, diarrhea, constipation GENITOURINARY: Absent: dysuria, frequency, urgency MUSCULOSKELETAL: Absent: myalgia, arthralgia, joint swelling, back pain, neck pain NEUROLOGIC: Absent: headache, focal weakness or paresthesias, dizziness, unsteady gait, seizure PSYCHIATRIC: anxiety, Absent: depression, suicidal or homicidal ideation, hallucinations PHYSICAL EXAMINATION Vital Signs - 24 hr 06/22/18 06/22/18 06/23/18 22:00 23:15 05:49 Temperature 97.7 F 97.6 F 97.5 F L Pulse Rate 66 Pulse Rate [ 58 L 52 L Right Brachial] Respiratory 19 20 16 Rate Blood Pressure 119/62 Blood Pressure 136/78 121/62 [Left] Blood Pressure [Right Arm] O2 Sat by Pulse 100 100 100 Oximetry (%) 06/23/18 06/23/18 06/23/18 07:56 08:33 10:38 Temperature 97.7 F 98.0 F Pulse Rate 52 L Pulse Rate [ 54 L 53 L Right Brachial] Respiratory 16 16 Rate Blood Pressure Blood Pressure 132/75 134/75 [Left] Blood Pressure [Right Arm] O2 Sat by Pulse 96 100 100 Oximetry (%) 06/23/18 12:41 Temperature Pulse Rate Pulse Rate [ 57 L Right Brachial] Respiratory Rate Blood Pressure Blood Pressure 140/84 [Left] Blood Pressure 140/84 [Right Arm] O2 Sat by Pulse 100 Oximetry (%) GENERAL: Awake, alert, and fully oriented, anxious, tearful. HEAD: Normal with no signs of trauma. EYES: Extraocular movements intact, sclera anicteric, conjunctiva clear. EARS, NOSE, THROAT: Oropharynx clear without exudates. Moist mucous membranes. NECK: Normal range of motion, supple without lymphadenopathy, JVD, or masses. LUNGS: Breath sounds equal, clear to auscultation bilaterally. No wheezes, and no crackles. No accessory muscle use. HEART: Regular rate and rhythm, normal S1 and S2 without murmur, rub or gallop. ABDOMEN: Soft, nontender, not distended, normoactive bowel sounds. LOWER EXTREMITIES: No peripheral edema. NEUROLOGICAL: non focal, normal gait. PSYCHIATRIC: Cooperative. Good eye contact, anxious. SKIN: Warm, dry, normal turgor, no rashes. Laboratory Results - last 24 hr 06/23/18 06/23/18 06/23/18 01:51 01:51 01:51 WBC 5.7 RBC 4.08 Hgb 11.7 Hct 34.9 MCV 85.7 MCH 28.8 MCHC 33.7 RDW 13.7 Plt Count 197 MPV 9.7 Absolute Neuts (auto) 2.6 Neutrophils % 46.5 Lymphocytes % 39.9 Monocytes % 7.6 Eosinophils % 4.9 H Basophils % 1.1 Nucleated RBC % 0 PT with INR 10.70 INR 0.91 PTT (Actin FS) Sodium 139 Potassium 3.6 Chloride 101 Carbon Dioxide 32 Anion Gap 6 L BUN 20 H Creatinine 1.1 Creat Clearance w eGFR 52.58 Random Glucose 101 Calcium 8.3 L Phosphorus Magnesium 2.1 Total Bilirubin 0.3 AST 25 ALT 19 Alkaline Phosphatase 169 H Creatine Kinase 303 H Creatine Kinase Index 1.6 CK-MB (CK-2) 5.1 H Troponin I 0.14 H Total Protein 6.6 Albumin 3.5 Triglycerides Cholesterol Total LDL Cholesterol HDL Cholesterol 06/23/18 06/23/18 06/23/18 08:05 08:05 08:05 WBC 5.8 RBC 4.07 Hgb 11.9 Hct 35.0 MCV 86.2 MCH 29.3 MCHC 33.9 RDW 14.0 Plt Count 189 MPV 9.8 Absolute Neuts (auto) 2.6 Neutrophils % 44.4 Lymphocytes % 42.9 H Monocytes % 6.0 Eosinophils % 5.6 H Basophils % 1.1 Nucleated RBC % 0 PT with INR 10.90 INR 0.92 PTT (Actin FS) 30.2 Sodium Potassium Chloride Carbon Dioxide Anion Gap BUN Creatinine Creat Clearance w eGFR Random Glucose Calcium Phosphorus 4.4 Magnesium 2.5 H Total Bilirubin AST ALT Alkaline Phosphatase Creatine Kinase Creatine Kinase Index CK-MB (CK-2) Troponin I 0.30 H Total Protein Albumin Triglycerides 46 Cholesterol 145 Total LDL Cholesterol 57 HDL Cholesterol 80 H Active Medications Generic Name Dose Route Start Last Admin Trade Name Freq PRN Reason Stop Dose Admin Albuterol Sulfate 2 puff 06/23/18 07:29 Ventolin Hfa Inhaler - IH Q4H PRN SHORT OF BREATH/WHEEZING Aspirin 81 mg 06/23/18 10:00 06/23/18 09:30 Ecotrin - PO 81 mg DAILY SANA Administration Chlordiazepoxide HCl 50 mg 06/23/18 08:30 06/23/18 12:23 Librium - PO 06/23/18 23:01 50 mg [id number] SANA Administration Chlordiazepoxide HCl 25 mg 06/24/18 05:00 Librium - PO 06/24/18 23:01 [id number] SANA Chlordiazepoxide HCl 15 mg 06/25/18 05:00 Librium - PO 06/25/18 23:01 [id number] SANA Chlordiazepoxide HCl 25 mg 06/23/18 07:24 Librium - PO 06/26/18 07:23 Q4H PRN WITHDRAWAL(CONT SUBST) Chlordiazepoxide HCl 10 mg 06/26/18 05:00 Librium - PO 06/26/18 23:01 [id number] SANA Cyanocobalamin 100 mcg 06/23/18 10:00 06/23/18 09:31 Vitamin B12 - PO 100 mcg DAILY SANA Administration Enoxaparin Sodium 40 mg 06/23/18 10:00 06/23/18 09:31 Lovenox - SQ 40 mg DAILY SANA Administration HCTZ/Losartan Potassium 1 tab 06/23/18 10:00 06/23/18 09:59 Hyzaar - PO 1 tab DAILY SANA Administration Nicotine 7 mg 06/23/18 10:00 06/23/18 09:59 Nicoderm Patch - TD 7 mg DAILY SANA Administration Quetiapine Fumarate 200 mg 06/23/18 22:00 Seroquel - PO HS SANA Thiamine HCl 100 mg 06/23/18 10:00 06/23/18 09:31 Vitamin B1 - PO 100 mg DAILY SANA Administration Zolpidem Tartrate 10 mg 06/23/18 22:00 Ambien - PO HS PRN INSOMNIA ASSESSMENT/PLAN: The patient is a 48 year old female with a PMH of HTN, polysubstance abuse ( cocaine, alcohol, tabacco), PTSD, anxiety, bipolar disorder that was brought to the hospital from [facility] for chest pain. Atypical chest pain HTN polysubstance abuse PTSD anxiety asthma Plan: Atypical chest pain: -in light of regular crack cocaine use it is very likely that it may have caused cardiac ischemia with elevated troponins, last one 0.3, non specific ekg changes -ECHO: trace TR, MR, moderate LVH, normal EF -please continue ASA, trend troponin, serial ekgs -no indication for systemic anticoagulation -no beta blockers -continue supportive care with thiamine, B12, librium protocol for polysubstance abuse HTN: -controlled well with Hyzaar -monitoring Dr Montes Discussed with Dr An Dispo: We will continue to follow the patient. Thank you for this consultative opportunity. <Cristiane Montes - Last Filed: 06/23/18 14:56> Consultation: REQUESTING PROVIDER: CONSULT REQUEST: Cardiology consult We have been asked to medically evaluate this patient for Elevated TP and CP I reviewed with the resident the history and I examined the patient and reviewed available data. 48 yo F with active cocaine and alcohol abuse was transferred from detox after an episode of atypical chest pain resolved with belching. Echo showed normal LV function and ECG with nonspecific ST abnormality. There is mild TP elevation TP is due to active drug use and treatemnt is supportive. No further cardiac testing is suggested. Can consider using ASA continue BP control, No contraindications to transferring to detox. Will see as needed. PHYSICAL EXAMINATION Vital Signs - 24 hr 06/22/18 06/22/18 06/23/18 22:00 23:15 05:49 Temperature 97.7 F 97.6 F 97.5 F L Pulse Rate 66 Pulse Rate [ 58 L 52 L Right Brachial] Respiratory 19 20 16 Rate Blood Pressure 119/62 Blood Pressure 136/78 121/62 [Left] Blood Pressure [Right Arm] O2 Sat by Pulse 100 100 100 Oximetry (%) 06/23/18 06/23/18 06/23/18 07:56 08:33 10:38 Temperature 97.7 F 98.0 F Pulse Rate 52 L Pulse Rate [ 54 L 53 L Right Brachial] Respiratory 16 16 Rate Blood Pressure Blood Pressure 132/75 134/75 [Left] Blood Pressure [Right Arm] O2 Sat by Pulse 96 100 100 Oximetry (%) 06/23/18 06/23/18 06/23/18 12:41 13:50 14:55 Temperature 98.7 F 98 F Pulse Rate 70 Pulse Rate [ 57 L 57 L Right Brachial] Respiratory 18 Rate Blood Pressure 142/80 Blood Pressure 140/84 [Left] Blood Pressure 140/84 140/84 [Right Arm] O2 Sat by Pulse 100 100 Oximetry (%) GENERAL: Awake, alert, and fully oriented, in no acute distress. HEAD: Normal with no signs of trauma. EYES: Pupils equal, round and reactive to light, extraocular movements intact, sclera anicteric, conjunctiva clear. No lid lag. EARS, NOSE, THROAT: Ears normal, nares patent, oropharynx clear without exudates. Moist mucous membranes. NECK: Normal range of motion, supple without lymphadenopathy, JVD, or masses. LUNGS: Breath sounds equal, clear to auscultation bilaterally. No wheezes, and no crackles. No accessory muscle use. HEART: Regular rate and rhythm, normal S1 and S2 without murmur, rub or gallop. ABDOMEN: Soft, nontender, not distended, normoactive bowel sounds, no guarding, no rebound, no masses. No hepatomegaly or splenomegaly. MUSCULOSKELETAL: Normal range of motion at all joints. No bony deformities or tenderness. No CVA tenderness. UPPER EXTREMITIES: 2+ pulses, warm, well-perfused. No cyanosis. No clubbing. Cap refill <2 seconds. No peripheral edema. LOWER EXTREMITIES: 2+ pulses, warm, well-perfused. No calf tenderness. No peripheral edema. SKIN: Warm, dry, normal turgor, no rashes or lesions noted. Laboratory Results - last 24 hr 06/23/18 06/23/18 06/23/18 08:05 08:05 08:05 WBC 5.8 RBC 4.07 Hgb 11.9 Hct 35.0 MCV 86.2 MCH 29.3 MCHC 33.9 RDW 14.0 Plt Count 189 MPV 9.8 Absolute Neuts (auto) 2.6 Neutrophils % 44.4 Lymphocytes % 42.9 H Monocytes % 6.0 Eosinophils % 5.6 H Basophils % 1.1 Nucleated RBC % 0 PT with INR 10.90 INR 0.92 PTT (Actin FS) 30.2 Sodium Potassium Chloride Carbon Dioxide Anion Gap BUN Creatinine Creat Clearance w eGFR Random Glucose Calcium Phosphorus 4.4 Magnesium 2.5 H Total Bilirubin AST ALT Alkaline Phosphatase Creatine Kinase Creatine Kinase Index CK-MB (CK-2) Troponin I 0.30 H Total Protein Albumin Triglycerides 4 Cholesterol 145 Total LDL Cholesterol 57 HDL Cholesterol 80 H Active Medications Generic Name Dose Route Start Last Admin Trade Name Freq PRN Reason Stop Dose Admin Albuterol Sulfate 2 puff 06/23/18 07:29 Ventolin Hfa Inhaler - IH Q4H PRN SHORT OF BREATH/WHEEZING Aspirin 81 mg 06/23/18 10:00 06/23/18 09:30 Ecotrin - PO 81 mg DAILY SANA Administration Chlordiazepoxide HCl 50 mg 06/23/18 08:30 06/23/18 12:23 Librium - PO 06/23/18 23:01 50 mg [id number] SANA Administration Chlordiazepoxide HCl 25 mg 06/24/18 05:00 Librium - PO 06/24/18 23:01 [id number] SANA Chlordiazepoxide HCl 15 mg 06/25/18 05:00 Librium - PO 06/25/18 23:01 [id number] SANA Chlordiazepoxide HCl 25 mg 06/23/18 07:24 Librium - PO 06/26/18 07:23 Q4H PRN WITHDRAWAL(CONT SUBST) Chlordiazepoxide HCl 10 mg 06/26/18 05:00 Librium - PO 06/26/18 23:01 [id number] SANA Cyanocobalamin 100 mcg 06/23/18 10:00 06/23/18 09:31 Vitamin B12 - PO 100 mcg DAILY SANA Administration Enoxaparin Sodium 40 mg 06/23/18 10:00 06/23/18 09:31 Lovenox - SQ 40 mg DAILY SANA Administration HCTZ/Losartan Potassium 1 tab 06/23/18 10:00 06/23/18 09:59 Hyzaar - PO 1 tab DAILY SANA Administration Nicotine 7 mg 06/23/18 10:00 06/23/18 09:59 Nicoderm Patch - TD 7 mg DAILY SANA Administration Quetiapine Fumarate 200 mg 06/23/18 22:00 Seroquel - PO HS SANA Thiamine HCl 100 mg 06/23/18 10:00 06/23/18 09:31 Vitamin B1 - PO 100 mg DAILY SANA Administration Zolpidem Tartrate 10 mg 06/23/18 22:00 Ambien - PO HS PRN INSOMNIA <Pastor An - Last Filed: 06/23/18 15:06> Problem List - Problems (1) PTSD (post-traumatic stress disorder) Code(s): F43.10 - POST-TRAUMATIC STRESS DISORDER, UNSPECIFIED (2) Anxiety Code(s): F41.9 - ANXIETY DISORDER, UNSPECIFIED (3) Alcohol dependence with uncomplicated withdrawal Code(s): F10.230 - ALCOHOL DEPENDENCE WITH WITHDRAWAL, UNCOMPLICATED (4) Bipolar 1 disorder Code(s): F31.9 - BIPOLAR DISORDER, UNSPECIFIED (5) Bronchial asthma Code(s): J45.909 - UNSPECIFIED ASTHMA, UNCOMPLICATED Qualifiers: Asthma severity: mild Asthma persistence: intermittent Asthma complication type: unspecified Qualified Code(s): J45.20 - Mild intermittent asthma, uncomplicated (6) Cocaine dependence Code(s): F14.20 - COCAINE DEPENDENCE, UNCOMPLICATED Qualifiers: Substance use status: uncomplicated Qualified Code(s): F14.20 - Cocaine dependence, uncomplicated (7) HTN (hypertension) Code(s): I10 - ESSENTIAL (PRIMARY) HYPERTENSION Qualifiers: Hypertension type: essential hypertension Qualified Code(s): I10 - Essential (primary) hypertension (8) EtOH dependence Code(s): F10.20 - ALCOHOL DEPENDENCE, UNCOMPLICATED (9) Chest pain Code(s): R07.9 - CHEST PAIN, UNSPECIFIED <Cristiane Montes - Last Filed: 06/23/18 14:56> Visit type - Emergency Visit Emergency Visit: Yes ED Registration Date: 06/23/18 Care time: The patient presented to the Emergency Department on the above date and was hospitalized for further evaluation of their emergent condition. - New Patient This patient is new to me today: Yes Date on this admission: 06/23/18 - Critical Care Critical Care patient: No <Cristiane Montes - Last Filed: 06/23/18 14:56>
--- NOTE | 2018-06-23 15:13 | DS ---
Physical Exam: SUBJECTIVE: Patient seen and examined. Pt. denies any complaints at this time. Pt. states that the pain resolves "after 2 deep belches." Pt. endorse cocaine use and is eager to get back to rehab. Pt. asking about eating more food. OBJECTIVE: Vital Signs Period Temp Pulse Resp BP Sys/Pastor Pulse Ox Last 24 Hr 97.5 F-98.7 F 52-70 16-20 119-142/62-84 96-100 PHYSICAL EXAM GENERAL: The patient is awake, alert, and fully oriented, in no acute distress. EYES: sclera anicteric, conjunctiva clear. ENT: Ears normal, nares patent, moist mucous membranes. NECK: Trachea midline, full range of motion, supple, no carotid bruit LUNGS: Breath sounds equal, clear to auscultation bilaterally, no wheezes, no crackles, no accessory muscle use. HEART: Regular rate and rhythm, S1, S2 without murmur ABDOMEN: Soft, nontender, nondistended, normoactive bowel sounds, no guarding, no rebound EXTREMITIES: 2+ equal radial pulses b/l, warm, no calf tenderness well-perfused , no edema. NEUROLOGICAL: Cranial nerves II through XII grossly intact. Normal speech, Normal gait. PSYCH: Anxious SKIN: Warm, dry, normal turgor LABS Laboratory Results - last 24 hr 06/23/18 06/23/18 06/23/18 01:51 01:51 01:51 WBC 5.7 RBC 4.08 Hgb 11.7 Hct 34.9 MCV 85.7 MCH 28.8 MCHC 33.7 RDW 13.7 Plt Count 197 MPV 9.7 Absolute Neuts (auto) 2.6 Neutrophils % 46.5 Lymphocytes % 39.9 Monocytes % 7.6 Eosinophils % 4.9 H Basophils % 1.1 Nucleated RBC % 0 PT with INR 10.70 INR 0.91 PTT (Actin FS) Sodium 139 Potassium 3.6 Chloride 101 Carbon Dioxide 32 Anion Gap 6 L BUN 20 H Creatinine 1.1 Creat Clearance w eGFR 52.58 Random Glucose 101 Calcium 8.3 L Phosphorus Magnesium 2.1 Total Bilirubin 0.3 AST 25 ALT 19 Alkaline Phosphatase 169 H Creatine Kinase 303 H Creatine Kinase Index 1.6 CK-MB (CK-2) 5.1 H Troponin I 0.14 H Total Protein 6.6 Albumin 3.5 Triglycerides Cholesterol Total LDL Cholesterol HDL Cholesterol 06/23/18 06/23/18 06/23/18 08:05 08:05 08:05 WBC 5.8 RBC 4.07 Hgb 11.9 Hct 35.0 MCV 86.2 MCH 29.3 MCHC 33.9 RDW 14.0 Plt Count 189 MPV 9.8 Absolute Neuts (auto) 2.6 Neutrophils % 44.4 Lymphocytes % 42.9 H Monocytes % 6.0 Eosinophils % 5.6 H Basophils % 1.1 Nucleated RBC % 0 PT with INR 10.90 INR 0.92 PTT (Actin FS) 30.2 Sodium Potassium Chloride Carbon Dioxide Anion Gap BUN Creatinine Creat Clearance w eGFR Random Glucose Calcium Phosphorus 4.4 Magnesium 2.5 H Total Bilirubin AST ALT Alkaline Phosphatase Creatine Kinase Creatine Kinase Index CK-MB (CK-2) Troponin I 0.30 H Total Protein Albumin Triglycerides 46 Cholesterol 145 Total LDL Cholesterol 57 HDL Cholesterol 80 H HOSPITAL COURSE: Date of Admission:06/23/18 Date of Discharge: 06/23/18 Pt. admitted for chest pain 2/2 cocaine use. After 2 deep belches and before ED arrival Pt.'s chest pain had resolved. EKG was positive for QTc of 528, and for nonspecific ST abnormalities( had T-wave abnormality in the past). Troponins peaked at 0.30. Echo showed EF of 55-60%, no wall motion abnormalities. CXR was clear with prominent mediastinum. Cardiology and Addiction consultations were appreciated. Hospital course discussed and agreed upon with Pt. Minutes to complete discharge: 34 Discharge Summary Reason For Visit: ABNORMAL ELECTROCARDIOGRAPHY Current Active Problems Alcohol dependence with uncomplicated withdrawal (Acute) Anxiety (Acute) Chest pain (Acute) PTSD (post-traumatic stress disorder) (Acute) Bipolar 1 disorder (Chronic) Bronchial asthma (Chronic) Cocaine dependence (Chronic) HTN (hypertension) (Chronic) Nicotine dependence (Chronic) Scoliosis (Chronic) Condition: Good - Instructions Diet, Activity, Other Instructions: you were admitted to the hospital due to chest pain after cocaine use Please refrain from using any illegal drugs, it will damage your heart you will be sent back to [facility] for detox please resume your medications as before admission Please follow up with your primary care physician within one week . If you develop severe chest pain, nausea, vomiting, palpitations or light headedness please call 911 or return to ED [facility]. Disposition: HOME - Home Medications Comprehensive Discharge Medication List: Ambulatory Orders Zolpidem Tartrate [Ambien -] 10 mg PO HS 04/19/15 Albuterol Sulfate Inhaler - [Ventolin HFA Inhaler -] 2 puff IH Q4H PRN #1 inhaler 04/29/15 Losartan/Hydrochlorothiazide [Losartan-Hctz 50-12.5 mg Tab] 1 each PO DAILY 03/02 Naproxen [Naprosyn -] 500 mg PO BID 06/22/18 Quetiapine Fumarate [Seroquel -] 200 mg PO HS 06/22/18 This patient is new to me today: No Emergency Visit: Yes ED Registration Date: 06/23/18 Care time: The patient presented to the Emergency Department on the above date and was hospitalized for further evaluation of their emergent condition. Critical Care patient: No - Discharge Referral Referred to [facility] No
--- NOTE | 2018-06-23 17:12 | PN ---
Physical Exam: SUBJECTIVE: Patient seen and examined. Pt. denies any complaints at this time. Pt. states that the pain resolves "after 2 deep belches." Pt. endorse cocaine use and is eager to get back to rehab. Pt. asking about eating more food. OBJECTIVE: Vital Signs Period Temp Pulse Resp BP Sys/Pastor Pulse Ox Last 24 Hr 97.5 F-98.7 F 52-70 16-20 119-142/62-84 96-100 PHYSICAL EXAM GENERAL: The patient is awake, alert, and fully oriented, in no acute distress. EYES: sclera anicteric, conjunctiva clear. ENT: Ears normal, nares patent, moist mucous membranes. NECK: Trachea midline, full range of motion, supple, no carotid bruit LUNGS: Breath sounds equal, clear to auscultation bilaterally, no wheezes, no crackles, no accessory muscle use. HEART: Regular rate and rhythm, S1, S2 without murmur ABDOMEN: Soft, nontender, nondistended, normoactive bowel sounds, no guarding, no rebound EXTREMITIES: 2+ equal radial pulses b/l, warm, no calf tenderness well-perfused , no edema. NEUROLOGICAL: Cranial nerves II through XII grossly intact. Normal speech, Normal gait. PSYCH: Anxious SKIN: Warm, dry, normal turgor Laboratory Results - last 24 hr 06/23/18 06/23/18 06/23/18 01:51 01:51 01:51 WBC 5.7 RBC 4.08 Hgb 11.7 Hct 34.9 MCV 85.7 MCH 28.8 MCHC 33.7 RDW 13.7 Plt Count 197 MPV 9.7 Absolute Neuts (auto) 2.6 Neutrophils % 46.5 Lymphocytes % 39.9 Monocytes % 7.6 Eosinophils % 4.9 H Basophils % 1.1 Nucleated RBC % 0 PT with INR 10.70 INR 0.91 PTT (Actin FS) Sodium 139 Potassium 3.6 Chloride 101 Carbon Dioxide 32 Anion Gap 6 L BUN 20 H Creatinine 1.1 Creat Clearance w eGFR 52.58 Random Glucose 101 Calcium 8.3 L Phosphorus Magnesium 2.1 Total Bilirubin 0.3 AST 25 ALT 19 Alkaline Phosphatase 169 H Creatine Kinase 303 H Creatine Kinase Index 1.6 CK-MB (CK-2) 5.1 H Troponin I 0.14 H Total Protein 6.6 Albumin 3.5 Triglycerides Cholesterol Total LDL Cholesterol HDL Cholesterol 06/23/18 06/23/18 06/23/18 08:05 08:05 08:05 WBC 5.8 RBC 4.07 Hgb 11.9 Hct 35.0 MCV 86.2 MCH 29.3 MCHC 33.9 RDW 14.0 Plt Count 189 MPV 9.8 Absolute Neuts (auto) 2.6 Neutrophils % 44.4 Lymphocytes % 42.9 H Monocytes % 6.0 Eosinophils % 5.6 H Basophils % 1.1 Nucleated RBC % 0 PT with INR 10.90 INR 0.92 PTT (Actin FS) 30.2 Sodium Potassium Chloride Carbon Dioxide Anion Gap BUN Creatinine Creat Clearance w eGFR Random Glucose Calcium Phosphorus 4.4 Magnesium 2.5 H Total Bilirubin AST ALT Alkaline Phosphatase Creatine Kinase Creatine Kinase Index CK-MB (CK-2) Troponin I 0.30 H Total Protein Albumin Triglycerides 46 Cholesterol 145 Total LDL Cholesterol 57 HDL Cholesterol 80 H 06/23/18 15:35 WBC RBC Hgb Hct MCV MCH MCHC RDW Plt Count MPV Absolute Neuts (auto) Neutrophils % Lymphocytes % Monocytes % Eosinophils % Basophils % Nucleated RBC % PT with INR INR PTT (Actin FS) Sodium Potassium Chloride Carbon Dioxide Anion Gap BUN Creatinine Creat Clearance w eGFR Random Glucose Calcium Phosphorus Magnesium Total Bilirubin AST ALT Alkaline Phosphatase Creatine Kinase Creatine Kinase Index CK-MB (CK-2) Troponin I 0.24 H Total Protein Albumin Triglycerides Cholesterol Total LDL Cholesterol HDL Cholesterol Active Medications Current Medications Albuterol Sulfate (Ventolin Hfa Inhaler -) 2 puff IH Q4H PRN PRN Reason: SHORT OF BREATH/WHEEZING Aspirin (Ecotrin -) 81 mg PO DAILY [facility] Last Admin: 06/23/18 09:30 Dose: 81 mg Chlordiazepoxide HCl (Librium -) 50 mg PO [id number] [facility] Stop: 06/23/18 23:01 Last Admin: 06/23/18 17:02 Dose: 50 mg Chlordiazepoxide HCl (Librium -) 25 mg PO [id number] [facility] Stop: 06/24/18 23:01 Chlordiazepoxide HCl (Librium -) 15 mg PO [id number] [facility] Stop: 06/25/18 23:01 Chlordiazepoxide HCl (Librium -) 10 mg PO [id number] [facility] Stop: 06/26/18 23:01 Chlordiazepoxide HCl (Librium -) 25 mg PO Q4H PRN PRN Reason: WITHDRAWAL(CONT SUBST) Stop: 06/26/18 07:23 Cyanocobalamin (Vitamin B12 -) 100 mcg PO DAILY [facility] Last Admin: 06/23/18 09:31 Dose: 100 mcg Enoxaparin Sodium (Lovenox -) 40 mg SQ DAILY [facility] Last Admin: 06/23/18 09:31 Dose: 40 mg HCTZ/Losartan Potassium (Hyzaar -) 1 tab PO DAILY [facility] Last Admin: 06/23/18 09:59 Dose: 1 tab Naproxen (Naprosyn -) 500 mg PO BID [facility] Nicotine (Nicoderm Patch -) 7 mg TD DAILY [facility] Last Admin: 06/23/18 09:59 Dose: 7 mg Quetiapine Fumarate (Seroquel -) 200 mg PO HS [facility] Thiamine HCl (Vitamin B1 -) 100 mg PO DAILY [facility] Last Admin: 06/23/18 09:31 Dose: 100 mg Zolpidem Tartrate (Ambien -) 10 mg PO HS PRN PRN Reason: INSOMNIA Home Medications Medication Instructions Recorded Zolpidem Tartrate [Ambien -] 10 mg PO HS 04/19/15 Albuterol Sulfate Inhaler - 2 puff IH Q4H PRN #1 inhaler 04/29/15 [Ventolin HFA Inhaler -] Losartan/Hydrochlorothiazide 1 each PO DAILY 06/22/18 [Losartan-Hctz 50-12.5 mg Tab] Naproxen [Naprosyn -] 500 mg PO BID 06/22/18 Quetiapine Fumarate [Seroquel -] 200 mg PO HS 06/22/18 ASSESSMENT/PLAN: Pt. is a 48 yo F with signif PMHx of HTN, PTSD (following abuse), Asthma, multi substance abuse, bipolar disorder, scoliosis, arthritis who presented from [facility] overnight for chest pain. #Cardiology -R/O ACS Troponins peaked at 0.3 likely 2/2 demand ischemia from cocaine abuse. Cardiology consult (Dr. Putnam) appreciate EKG: shows non specific ST segment changes, QTC of 528, HR: 52 Medically optimized per Cardiology for return to [facility] Pt. is pending bed availability for [facility] tomorrow morning c/w ASA -HTN c/w Hyzaar #Gastroenterology -Hx. of EtOH abuse c/w Librium protocol c/w B1 c/w B12 DVT Ppx. -c/w Lovenox 40mg SQ Visit type - Emergency Visit Emergency Visit: Yes ED Registration Date: 06/23/18 Care time: The patient presented to the Emergency Department on the above date and was hospitalized for further evaluation of their emergent condition. - New Patient This patient is new to me today: Yes Date on this admission: 06/23/18 - Critical Care Critical Care patient: No - Discharge Referral Referred to [facility] No
[2018-06-23] MEDS ORDERED: QUEtiapine FUMARATE 200 MG TABLET PO SCH (22:00)
[2018-06-23] MEDS ORDERED: ZOLPIDEM TARTRATE 5 MG TABLET PO PRN (22:00)
[2018-06-23] MEDS: NAPROXEN 500 MG TABLET (FP) PO SCH (22:40)
[2018-06-24 05:37] VITALS: TEMP 97.5
[2018-06-24] MEDS: chlordiazePOXIDE HCL 25 MG CAPSULE PO SCH ×2 (05:37→10:59)
[2018-06-24 08:19] VITALS: BP 125/65; PULSE 60
[2018-06-24] MEDS ORDERED: PT OWN MED DRAWER 7, Y5N ONE (09:43)
[2018-06-24] MEDS ORDERED: FOLIC ACID 1 MG TABLET (FP) PO SCH (10:00)
[2018-06-24] MEDS: NICOTINE 7 MG/24 HOURS TOPICAL PATCH TD SCH (10:58)
[2018-06-24] MEDS: THIAMINE HCL 100 MG TABLET (FP) PO SCH (10:58)
[2018-06-24] MEDS: ASPIRIN COATED 81 MG TABLET.EC PO SCH (10:59)
[2018-06-24] MEDS: LOSARTAN 50MG/HCTZ 12.5MG 1 TAB (FP) PO SCH (10:59)
[2018-06-24] MEDS: ENOXAPARIN NA (PORCINE) 40 MG/0.4 ML DISP.SYRIN SQ SCH (10:59)
[2018-06-24] MEDS: CYANOCOBALAMIN (VITAMIN B-12) 100 MCG TABLET PO SCH (10:59)
[2018-06-24] MEDS: NAPROXEN 500 MG TABLET (FP) PO SCH (11:00)
--- NOTE | 2018-06-24 12:40 | PN ---
Teaching Attending Note Name of Resident: Bashir Sesay ATTENDING PHYSICIAN STATEMENT I saw and evaluated the patient. I reviewed the resident's note and discussed the case with the resident. I agree with the resident's findings and plan as documented. SUBJECTIVE: Patient is comfortable with no acute distress. going back to detox. center. OBJECTIVE: Vital Signs Temperature 97.5 F L 06/24/18 05:00 Pulse Rate 60 06/24/18 08:17 Respiratory Rate 18 06/24/18 08:17 Blood Pressure 125/65 06/24/18 08:17 O2 Sat by Pulse Oximetry (%) 98 06/23/18 21:00 GENERAL: Awake, alert, and fully oriented, in no acute distress. HEAD: Normal with no signs of trauma. EYES: Pupils equal, round and reactive to light, extraocular movements intact, sclera anicteric, conjunctiva clear. EARS, NOSE, THROAT: Moist mucous membranes. LUNGS: Breath sounds equal, clear to auscultation bilaterally. No wheezes, and no crackles. HEART: Regular rate and rhythm, normal S1 and S2 without murmur, rub or gallop. ABDOMEN: Soft, nontender, not distended, normoactive bowel sounds, no guarding, no rebound, no masses. EXTREMITIES: 2+ pulses, warm, well-perfused. No calf tenderness. No peripheral edema. NEUROLOGICAL: Cranial nerves II-XII intact. Normal speech. Normal gait. PSYCHIATRIC: Cooperative. Good eye contact. Appropriate mood and affect. CBCD WBC 5.8 K/mm3 (4.0-10.0) 06/23/18 08:05 RBC 4.07 M/mm3 (3.60-5.2) 06/23/18 08:05 Hgb 11.9 GM/dL (10.7-15.3) 06/23/18 08:05 Hct 35.0 % (32.4-45.2) 06/23/18 08:05 MCV 86.2 fl (80-96) 06/23/18 08:05 MCHC 33.9 g/dl (32.0-36.0) 06/23/18 08:05 RDW 14.0 % (11.6-15.6) 06/23/18 08:05 Plt Count 189 K/MM3 (134-434) 06/23/18 08:05 MPV 9.8 fl (7.5-11.1) 06/23/18 08:05 CMP Sodium 139 mmol/L (136-145) 06/23/18 01:51 Potassium 3.6 mmol/L (3.5-5.1) 06/23/18 01:51 Chloride 101 mmol/L (98-107) 06/23/18 01:51 Carbon Dioxide 32 mmol/L (21-32) 06/23/18 01:51 Anion Gap 6 MMOL/L (8-16) L 06/23/18 01:51 BUN 20 mg/dL (7-18) H 06/23/18 01:51 Creatinine 1.1 mg/dL (0.55-1.3) 06/23/18 01:51 Creat Clearance w eGFR 52.58 (>60) 06/23/18 01:51 Random Glucose 101 mg/dL (74-106) 06/23/18 01:51 Calcium 8.3 mg/dL (8.5-10.1) L 06/23/18 01:51 Total Bilirubin 0.3 mg/dL (0.2-1) 06/23/18 01:51 AST 25 U/L (15-37) 06/23/18 01:51 ALT 19 U/L (13-61) 06/23/18 01:51 Alkaline Phosphatase 169 U/L (45-117) H 06/23/18 01:51 Total Protein 6.6 g/dl (6.4-8.2) 06/23/18 01:51 Albumin 3.5 g/dl (3.4-5.0) 06/23/18 01:51 CARDIAC ENZYMES Creatine Kinase 303 IU/L (26-192) H 06/23/18 01:51 Troponin I 0.24 ng/ml (0.00-0.05) H 06/23/18 15:35 Home Medications Medication Instructions Recorded Zolpidem Tartrate [Ambien] 10 mg PO HS 04/19/15 Albuterol Sulfate Inhaler - 2 puff IH Q4H PRN #1 inhaler 04/29/15 [Ventolin HFA Inhaler -] Losartan/Hydrochlorothiazide 1 each PO DAILY 06/22/18 [Losartan-Hctz 50-12.5 mg Tab] Naproxen [Naprosyn -] 500 mg PO BID 06/22/18 Quetiapine Fumarate [Seroquel -] 200 mg PO HS 06/22/18 ASSESSMENT AND PLAN: Patient is a 48 year old woman with a PMHx HTN, Asthma, polysubstance abuse ( cocaine, etc), alcohol abuse, tobacco use, PTSD and Bipolar disorder who presents to the ER with complaints of chest pain. # Acute Chest pain, ACS is ruled out. Cardio consult appreciated. troponins as below #Tobacco Use/Polysusbstance abuse smoking cessation # Alcohol abuse - on Detox protocol, will add thiamin, folic acid , will transfer the patient back to Detox DVT prophylaxis - Lovenox 40 mg SQ q 24 hours. Advance directives - Full code Laboratory Tests 06/23/18 06/23/18 06/23/18 01:51 08:05 15:35 BUN 20 H Magnesium 2.5 H Troponin I 0.14 H 0.30 H 0.24 H
[2018-06-25] MEDS ORDERED: chlordiazePOXIDE 5 MG CAPSULE PO SCH (05:00)
[2018-06-26] MEDS ORDERED: chlordiazePOXIDE HCL 10 MG CAPSULE PO SCH (05:00)
--- NOTE | 2018-06-28 18:48 | DS ---
Physical Exam: SUBJECTIVE: Patient seen and examined. Pt. denies any complaints at this time. Pt. states that the pain resolves "after 2 deep belches." Pt. endorse cocaine use and is eager to get back to rehab. Pt. asking about eating more food. OBJECTIVE: Vital Signs Period Temp Pulse Resp BP Sys/Pastor Pulse Ox Last 24 Hr 97.5 F-98.7 F 52-70 16-20 119-142/62-84 96-100 PHYSICAL EXAM GENERAL: The patient is awake, alert, and fully oriented, in no acute distress. EYES: sclera anicteric, conjunctiva clear. ENT: Ears normal, nares patent, moist mucous membranes. NECK: Trachea midline, full range of motion, supple, no carotid bruit LUNGS: Breath sounds equal, clear to auscultation bilaterally, no wheezes, no crackles, no accessory muscle use. HEART: Regular rate and rhythm, S1, S2 without murmur ABDOMEN: Soft, nontender, nondistended, normoactive bowel sounds, no guarding, no rebound EXTREMITIES: 2+ equal radial pulses b/l, warm, no calf tenderness well-perfused , no edema. NEUROLOGICAL: Cranial nerves II through XII grossly intact. Normal speech, Normal gait. PSYCH: Anxious SKIN: Warm, dry, normal turgor LABS Laboratory Results - last 24 hr 06/23/18 06/23/18 06/23/18 01:51 01:51 01:51 WBC 5.7 RBC 4.08 Hgb 11.7 Hct 34.9 MCV 85.7 MCH 28.8 MCHC 33.7 RDW 13.7 Plt Count 197 MPV 9.7 Absolute Neuts (auto) 2.6 Neutrophils % 46.5 Lymphocytes % 39.9 Monocytes % 7.6 Eosinophils % 4.9 H Basophils % 1.1 Nucleated RBC % 0 PT with INR 10.70 INR 0.91 PTT (Actin FS) Sodium 139 Potassium 3.6 Chloride 101 Carbon Dioxide 32 Anion Gap 6 L BUN 20 H Creatinine 1.1 Creat Clearance w eGFR 52.58 Random Glucose 101 Calcium 8.3 L Phosphorus Magnesium 2.1 Total Bilirubin 0.3 AST 25 ALT 19 Alkaline Phosphatase 169 H Creatine Kinase 303 H Creatine Kinase Index 1.6 CK-MB (CK-2) 5.1 H Troponin I 0.14 H Total Protein 6.6 Albumin 3.5 Triglycerides Cholesterol Total LDL Cholesterol HDL Cholesterol 06/23/18 06/23/18 06/23/18 08:05 08:05 08:05 WBC 5.8 RBC 4.07 Hgb 11.9 Hct 35.0 MCV 86.2 MCH 29.3 MCHC 33.9 RDW 14.0 Plt Count 189 MPV 9.8 Absolute Neuts (auto) 2.6 Neutrophils % 44.4 Lymphocytes % 42.9 H Monocytes % 6.0 Eosinophils % 5.6 H Basophils % 1.1 Nucleated RBC % 0 PT with INR 10.90 INR 0.92 PTT (Actin FS) 30.2 Sodium Potassium Chloride Carbon Dioxide Anion Gap BUN Creatinine Creat Clearance w eGFR Random Glucose Calcium Phosphorus 4.4 Magnesium 2.5 H Total Bilirubin AST ALT Alkaline Phosphatase Creatine Kinase Creatine Kinase Index CK-MB (CK-2) Troponin I 0.30 H Total Protein Albumin Triglycerides 46 Cholesterol 145 Total LDL Cholesterol 57 HDL Cholesterol 80 H HOSPITAL COURSE: Date of Admission:06/23/18 Date of Discharge: 06/24/18 Pt. admitted for chest pain 2/2 cocaine use. After 2 deep belches and before ED arrival Pt.'s chest pain had resolved. EKG was positive for QTc of 528, and for nonspecific ST abnormalities( had T-wave abnormality in the past). Troponins peaked at 0.30. Echo showed EF of 55-60%, no wall motion abnormalities. CXR was clear with prominent mediastinum. Cardiology and Addiction consultations were appreciated. Hospital course discussed and agreed upon with Pt. Minutes to complete discharge: 34 Discharge Summary Reason For Visit: ABNORMAL ELECTROCARDIOGRAPHY Condition: Good - Instructions Diet, Activity, Other Instructions: you were admitted to the hospital due to chest pain after cocaine use Please refrain from using any illegal drugs, it will damage your heart you will be sent back to [facility] for detox please resume your medications as before admission Please follow up with your primary care physician within one week . If you develop severe chest pain, nausea, vomiting, palpitations or light headedness please call 911 or return to ED [facility]EW. Disposition: HOME - Home Medications Comprehensive Discharge Medication List: Ambulatory Orders Zolpidem Tartrate [Ambien] 10 mg PO HS 04/19/15 Naproxen [Naprosyn -] 500 mg PO BID 06/22/18 Quetiapine Fumarate [Seroquel -] 200 mg PO HS 06/22/18 Albuterol Sulfate Inhaler - [Ventolin HFA Inhaler -] 2 puff IH Q4H PRN #1 inhaler 06/26/18 Amlodipine Besylate [Norvasc -] 10 mg PO DAILY #14 tablet 06/26/18 cloNIDine HCL [Catapres -] 0.2 mg PO BID #14 tablet 06/26/18 Quetiapine Fumarate [Seroquel] 100 mg PO HS #30 tablet 06/27/18 Albuterol Sulfate Inhaler - [Ventolin HFA Inhaler -] 2 puff IH Q4H PRN #1 inhaler 06/28/18 Amlodipine Besylate [Norvasc -] 10 mg PO DAILY #30 tablet 06/28/18 Clonidine HCl [Catapres] 0.2 mg PO BID #60 tablet 06/28/18 Hydrochlorothiazide 12.5 mg PO DAILY #30 tablet 06/28/18 Losartan Potassium [Cozaar -] 50 mg PO DAILY #30 tablet 06/28/18 This patient is new to me today: No Emergency Visit: Yes ED Registration Date: 06/23/18 Care time: The patient presented to the Emergency Department on the above date and was hospitalized for further evaluation of their emergent condition. Critical Care patient: No - Discharge Referral Referred to [facility] No
== END 2018-06-24 11:19 | disposition home or self-care (01) | DRG 918 ==
LOC: JER 21:57 → JERBED 06-23 01:45 → J4W 06-23 14:05
PROVIDERS: ADMIT Internal Medicine; ATTEND Internal Medicine
DX: T40.5X1A Poisoning by cocaine, accidental (unintentional), initial encounter (principal); F14.20 Cocaine dependence, uncomplicated; F10.230 Alcohol dependence with withdrawal, uncomplicated; I24.8 Other forms of acute ischemic heart disease; I10 Essential (primary) hypertension; J45.909 Unspecified asthma, uncomplicated; F43.10 Post-traumatic stress disorder, unspecified; F31.9 Bipolar disorder, unspecified; M41.9 Scoliosis, unspecified; F10.20 Alcohol dependence, uncomplicated; F17.210 Nicotine dependence, cigarettes, uncomplicated; F41.9 Anxiety disorder, unspecified; Y92.89 Other specified places as the place of occurrence of the external cause
CPT/HCPCS: 36415; 71046-TC-FY; 80053; 80061; 82550; 82553; 83721; 83735; 84100; 84484; 85025; 85027; 85610; 85730; 86593; 87389; 93005; 93010; 93306-TC; 99285-25; J0735

== ENCOUNTER 2018-06-24 12:14 | Inpatient (IN) | payer OTHER ==
[2018-06-24 12:19] VITALS: BMI 25.2
--- NOTE | 2018-06-24 12:33 | PN ---
[facility] Progress Note Note: this 48 years old female with alcohol dependence admitted on 06/22/18 detox at [facility],sent o [facility] for chest pain, admitted to telemetry unit from 06/23/18 to 06/24/18 medically clear to return to continue detox arthritis in both knees,neck, nicotine dependence,neck pain,cervical radiculitis bipolar disorder ptsd to continue detox librium regimen ,medically management
[2018-06-24] MEDS ORDERED: MAGNESIUM HYDROX 2400MG/30ML ORAL SUSPENSION 30 ML CUP PO PRN (12:46)
[2018-06-24] MEDS ORDERED: LOPERAMIDE HCL 2 MG CAPSULE PO PRN (12:46)
[2018-06-24] MEDS ORDERED: guaiFENesin/D-METHORPHAN HB 10 ML UNIT-DOSE CUPS PO PRN (12:46)
[2018-06-24] MEDS ORDERED: hydrOXYzine PAMOATE 50 MG CAPSULE (FP) PO PRN (12:46)
[2018-06-24] MEDS ORDERED: MAG HYDROX/AL HYDROX/SIMETH 30 ML UNIT-DOSE CUP PO PRN (12:46)
[2018-06-24] MEDS ORDERED: ACETAMINOPHEN 325 MG TABLET (FP) PO PRN (12:46)
[2018-06-24] MEDS ORDERED: P-EPHED 60MG/TRIPROLIDI 2.5MG TABLET PO PRN (12:46)
[2018-06-24] MEDS ORDERED: MAGNESIUM CITRATE 300 ML BOTTLE PO PRN (12:46)
[2018-06-24] MEDS ORDERED: IBUPROFEN 400 MG TABLET (FP) PO PRN (12:46)
[2018-06-24] MEDS ORDERED: MENTHOL/PHENOL 1 EACH UD MM PRN (12:46)
[2018-06-24] MEDS: [UNRECOGNIZED DRUG - OTHER] PO SCH (14:52)
[2018-06-24] MEDS: HYDROCHLOROTHIAZIDE PO SCH (14:52)
[2018-06-24] MEDS: LOSARTAN PO SCH (14:52)
[2018-06-24] MEDS: NICOTINE 21 MG/24 HOURS TOPICAL PATCH TD SCH (14:54)
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
[2018-06-24] MEDS ORDERED: MELATONIN 5 MG TABLETS PO PRN (22:00)
[2018-06-24] MEDS: NAPROXEN 500 MG TABLET (FP) PO SCH (22:33)
[2018-06-24] MEDS: THIAMINE HCL 100 MG TABLET (FP) PO SCH (23:44)
[2018-06-25] MEDS: chlordiazePOXIDE HCL 25 MG CAPSULE PO PRN ×3 (05:22→15:20)
[2018-06-25] MEDS: HYDROCHLOROTHIAZIDE PO SCH (09:37)
[2018-06-25] MEDS: [UNRECOGNIZED DRUG - OTHER] PO SCH (09:37)
[2018-06-25] MEDS: LOSARTAN PO SCH (09:37)
[2018-06-25] MEDS ORDERED: HYDROCHLOROTHIAZIDE PO SCH (10:00)
[2018-06-25] MEDS ORDERED: [UNRECOGNIZED DRUG - OTHER] PO SCH (10:00)
[2018-06-25] MEDS ORDERED: LOSARTAN PO SCH (10:00)
[2018-06-25] MEDS: PRENATAL VITAMINS W/ FOLIC ACID TABLET (FP) PO SCH (10:25)
[2018-06-25] MEDS: NAPROXEN 500 MG TABLET (FP) PO SCH ×2 (10:25→22:47)
[2018-06-25] MEDS: NICOTINE 21 MG/24 HOURS TOPICAL PATCH TD SCH (10:25)
[2018-06-25] MEDS: ALBUTEROL SO4 8 GM HFA INHALER IH PRN (13:37)
[2018-06-25] MEDS ORDERED: cloNIDine HCL 0.1 MG TABLET PO ONE (13:57)
[2018-06-25] MEDS ORDERED: chlordiazePOXIDE 5 MG CAPSULE PO SCH (17:00)
[2018-06-25] MEDS: chlordiazePOXIDE HCL 25 MG CAPSULE PO SCH ×2 (17:33→22:40)
[2018-06-25] MEDS: amLODIPine BESYLATE 10 MG TABLET (FP) PO SCH (17:33)
--- NOTE | 2018-06-25 17:50 | PN ---
S CIWA - CIWA Score Nausea/Vomitin-No Nausea/No Vomiting Muscle Tremors: None Anxiety: 3 Agitation: 3 Paroxysmal Sweats: No Perspiration Orientation: 0-Oriented Tacttile Disturbances: 0-None Auditory Disturbances: 0-None Visual Disturbances: 0-None Headache: 1-Very Mild CIWA-Ar Total Score: 7 [facility] Progress Note (SOAP) Subjective: PATIENT C/O ANXIETY, RESTLESSNESS AND MILD HEADACHE. Objective: Laboratory Tests 06/25/18 07:30 HIV 1&2 Antibody Screen Negative HIV P24 Antigen Negative VITAL SIGNS: 6AM TEMP: 98.1-PULSE 81- RESP 20 B/P 155/97 PE: ALERT AND ORIENTED X 3 SKIN WARM AND DRY ALERT AND ORIENTED X 3 EXT FULL ROM, AMB AD TERA ANXIOUS/ RESTLESS/STANDING AT NURSES STATION Assessment: 06/25/18 17:50 WITHDRAWAL SYNDROME Plan: CONTINUE DETOX ENCOURAGE ORAL FLUIDS CONTINUE TO MONITOR CLINICALLY
[2018-06-25] MEDS: cloNIDine HCL 0.1 MG TABLET PO SCH (22:40)
[2018-06-25] MEDS: THIAMINE HCL 100 MG TABLET (FP) PO SCH (22:40)
[2018-06-26] MEDS: chlordiazePOXIDE HCL 25 MG CAPSULE PO SCH ×2 (05:42→11:14)
[2018-06-26] MEDS: HYDROCHLOROTHIAZIDE PO SCH (10:04)
[2018-06-26] MEDS: amLODIPine BESYLATE 10 MG TABLET (FP) PO SCH (10:04)
[2018-06-26] MEDS: [UNRECOGNIZED DRUG - OTHER] PO SCH (10:04)
[2018-06-26] MEDS: PRENATAL VITAMINS W/ FOLIC ACID TABLET (FP) PO SCH (10:04)
[2018-06-26] MEDS: LOSARTAN PO SCH (10:04)
[2018-06-26] MEDS: cloNIDine HCL 0.1 MG TABLET PO SCH ×2 (10:05→22:47)
[2018-06-26] MEDS: NICOTINE 21 MG/24 HOURS TOPICAL PATCH TD SCH (10:05)
[2018-06-26] MEDS: NAPROXEN 500 MG TABLET (FP) PO SCH ×2 (10:05→22:47)
[2018-06-26 10:55] LABS: HEMATOCRIT 34.6 % (32.4-45.2); HEMOGLOBIN 11.1 GM/dL (10.7-15.3); MCHC 32.2 g/dl (32.0-36.0); MEAN CELL VOLUME 87.2 fl (80-96); MEAN PLT VOLUME 11.1 fl (7.5-11.1); PLATELET COUNT 206 K/MM3 (134-434); RBC 3.97 M/mm3 (3.60-5.2); WHITE BLOOD COUNT 5.4 K/mm3 (4.0-10.0)
[2018-06-26 10:59] LABS: ALBUMIN 3.7 g/dl (3.4-5.0); ALK PHOS 212 U/L (45-117); ANION GAP 9 MMOL/L (8-16); BILIRUBIN,TOTAL 0.4 mg/dL (0.2-1); BLOOD UREA NITROGEN 31 mg/dL (7-18); CALCIUM 8.2 mg/dL (8.5-10.1); CHLORIDE 104 mmol/L (98-107); CO2 27 mmol/L (21-32); CREATININE 1.2 mg/dL (0.55-1.3); GLUCOSE,RANDOM 110 mg/dL (74-106); POTASSIUM 3.9 mmol/L (3.5-5.1); SGOT/AST 15 U/L (15-37); SGPT/ALT 19 U/L (13-61); SODIUM 141 mmol/L (136-145); TOT PROT 6.8 g/dl (6.4-8.2)
--- NOTE | 2018-06-26 13:57 | PN ---
S Progress Note (SOAP) Subjective: 48 years old female admitted on 06/22/18 for alcohol withdrawal sx admitted to medical unit for abnormal EKG continue detox alcohol at the medical unit return to detox facility on 06/24/18 continue alcohol detox regimen patient is doing well no chest pain no shortness of breath feeling better no tremor no sweat no gi distress Objective: 06/26/18 13:56 Vital Signs Temperature 99.1 F 06/26/18 09:44 Pulse Rate 67 06/26/18 09:44 Respiratory Rate 18 06/26/18 09:44 Blood Pressure 129/89 06/26/18 09:44 O2 Sat by Pulse Oximetry (%) Laboratory Last Values WBC 5.4 K/mm3 (4.0-10.0) 06/26/18 08:09 RBC 3.97 M/mm3 (3.60-5.2) 06/26/18 08:09 Hgb 11.1 GM/dL (10.7-15.3) 06/26/18 08:09 Hct 34.6 % (32.4-45.2) 06/26/18 08:09 MCV 87.2 fl (80-96) 06/26/18 08:09 MCH 28.0 pg (25.7-33.7) 06/26/18 08:09 MCHC 32.2 g/dl (32.0-36.0) 06/26/18 08:09 RDW 14.0 % (11.6-15.6) 06/26/18 08:09 Plt Count 206 K/MM3 (134-434) 06/26/18 08:09 MPV 11.1 fl (7.5-11.1) D 06/26/18 08:09 Sodium 141 mmol/L (136-145) 06/26/18 08:09 Potassium 3.9 mmol/L (3.5-5.1) 06/26/18 08:09 Chloride 104 mmol/L (98-107) 06/26/18 08:09 Carbon Dioxide 27 mmol/L (21-32) 06/26/18 08:09 Anion Gap 9 MMOL/L (8-16) 06/26/18 08:09 BUN 31 mg/dL (7-18) H 06/26/18 08:09 Creatinine 1.2 mg/dL (0.55-1.3) 06/26/18 08:09 Creat Clearance w eGFR 47.55 (>60) 06/26/18 08:09 Random Glucose 110 mg/dL (74-106) H 06/26/18 08:09 Calcium 8.2 mg/dL (8.5-10.1) L 06/26/18 08:09 Total Bilirubin 0.4 mg/dL (0.2-1) 06/26/18 08:09 AST 15 U/L (15-37) 06/26/18 08:09 ALT 19 U/L (13-61) 06/26/18 08:09 Alkaline Phosphatase 212 U/L (45-117) H 06/26/18 08:09 Total Protein 6.8 g/dl (6.4-8.2) 06/26/18 08:09 Albumin 3.7 g/dl (3.4-5.0) 06/26/18 08:09 RPR Titer Nonreactive (NONREACTIVE) 06/26/18 08:09 HIV 1&2 Antibody Screen Negative 06/25/18 07:30 HIV P24 Antigen Negative 06/25/18 07:30 lab noted Assessment: 06/26/18 13:56 mild withdrawal sx health teaching on hypertension related to alcoholism Plan: medically supervised detox discuss important of bp control
[2018-06-26] MEDS ORDERED: chlordiazePOXIDE HCL 10 MG CAPSULE PO SCH (17:00)
[2018-06-26] MEDS ORDERED: chlordiazePOXIDE 5 MG CAPSULE PO SCH (17:00)
[2018-06-26] MEDS: chlordiazePOXIDE 5 MG CAPSULE PO SCH ×2 (17:19→22:47)
[2018-06-26] MEDS: chlordiazePOXIDE HCL 25 MG CAPSULE PO PRN (18:19)
[2018-06-26] MEDS: THIAMINE HCL 100 MG TABLET (FP) PO SCH (22:47)
[2018-06-27] MEDS: chlordiazePOXIDE 5 MG CAPSULE PO SCH (05:36)
[2018-06-27] MEDS ORDERED: chlordiazePOXIDE HCL 10 MG CAPSULE PO SCH ×3 (09:03→17:00)
[2018-06-27] MEDS ORDERED: chlordiazePOXIDE HCL 10 MG CAPSULE PO ONE (10:00)
[2018-06-27] MEDS: LOSARTAN PO SCH (10:10)
[2018-06-27] MEDS: HYDROCHLOROTHIAZIDE PO SCH (10:10)
[2018-06-27] MEDS: [UNRECOGNIZED DRUG - OTHER] PO SCH (10:10)
[2018-06-27] MEDS: amLODIPine BESYLATE 10 MG TABLET (FP) PO SCH (10:11)
[2018-06-27] MEDS: NAPROXEN 500 MG TABLET (FP) PO SCH ×2 (10:11→21:36)
[2018-06-27] MEDS: cloNIDine HCL 0.1 MG TABLET PO SCH ×2 (10:11→21:35)
[2018-06-27] MEDS: NICOTINE 21 MG/24 HOURS TOPICAL PATCH TD SCH (10:11)
[2018-06-27] MEDS: PRENATAL VITAMINS W/ FOLIC ACID TABLET (FP) PO SCH (10:11)
--- NOTE | 2018-06-27 10:26 | PN ---
[facility] Progress Note (SOAP) Subjective: feeling fine anxiety Objective: 06/27/18 10:25 Vital Signs Temperature 98.6 F 06/27/18 09:45 Pulse Rate 66 06/27/18 09:45 Respiratory Rate 18 06/27/18 09:45 Blood Pressure 129/67 06/27/18 09:45 O2 Sat by Pulse Oximetry (%) aaox3 ambulating no acute distress Assessment: 06/27/18 10:25 mild withdrawal sx Plan: continue detox increase fluids d/c in am
--- NOTE | 2018-06-27 14:32 | PN ---
Psychiatric Progress Note Vital Signs: Vital Signs Period Temp Pulse Resp BP Sys/Pastor Pulse Ox Last 24 Hr 95.9 F-98.6 F 59-74 16-20 104-152/54-87 Date of Session: 06/27/18 Chief Complaint:: Insomnia HPI: Patient reports taking prior to admission Seroquel 200mg po qhs, reports insomnia and asking behavioral health aide Current Medications: Active Medications Generic Name Dose Route Start Last Admin Trade Name Freq PRN Reason Stop Dose Admin Acetaminophen 650 mg 06/24/18 12:46 Tylenol - PO Q4H PRN FEVER Al Hydroxide/Mg Hydroxide 30 ml 06/24/18 12:46 Mylanta Oral Suspension - PO Q6H PRN DYSPEPSIA Albuterol Sulfate 2 puff 06/24/18 12:42 06/25/18 13:37 Ventolin Hfa Inhaler - IH 2 inh Q4H PRN Administration SHORT OF BREATH/WHEEZING Amlodipine Besylate 10 mg 06/25/18 16:15 06/27/18 10:11 Norvasc - PO 10 mg DAILY SANA Administration Clonidine 0.2 mg 06/25/18 21:15 06/27/18 10:11 Catapres - PO 0.2 mg BID SANA Administration Eucalyptus/Menthol/Phenol/Sorbitol 1 each 06/24/18 12:46 Cepastat Lozenge - MM Q4H PRN SORE THROAT Guaifenesin 10 ml 06/24/18 12:46 Robitussin Dm - PO Q6H PRN COUGH Hydroxyzine Pamoate 50 mg 06/24/18 12:46 06/25/18 05:22 Vistaril - PO 50 mg Q4H PRN Administration AGITATION Loperamide HCl 4 mg 06/24/18 12:46 Imodium - PO Q6H PRN DIARRHEA Magnesium Citrate 300 ml 06/24/18 12:46 Citroma - PO Q48H PRN CONSTIPATION Magnesium Hydroxide 30 ml 06/24/18 12:46 Milk Of Magnesia - PO DAILY PRN CONSTIPATION Melatonin 5 mg 06/24/18 22:00 Melatonin PO HS PRN INSOMNIA Naproxen 500 mg 06/24/18 22:00 06/27/18 10:11 Naprosyn - PO 500 mg BID SANA Administration Nicotine 21 mg 06/24/18 13:45 06/27/18 10:11 Nicoderm Patch - TD 21 mg DAILY [facility] Administration Non-Formulary Medication 1 each 06/24/18 14:45 06/27/18 10:10 Losartan/Hydrochlorothiazide [Losartan-Hctz 50-12.5 Mg Tab] PO 1 each DAILY [facility] Administration Multivit/Folic Acid/Iron 1 tab 06/25/18 10:00 06/27/18 10:11 Vitamins (Sjr) - PO 1 tab DAILY [facility]NA Administration Pseudoephedrine/Triprolidine 1 combo 06/24/18 12:46 Actifed - PO TID PRN NASAL CONGESTION Quetiapine Fumarate 100 mg 06/27/18 22:00 Seroquel - PO HS SANA Thiamine HCl 100 mg 06/24/18 22:00 06/26/18 22:47 Vitamin B1 - PO 100 mg HS SANA Administration Medication(s) Change(s): Seroquel 100mg po qhs Mental Status Exam - Mental Status Exam Alert and Oriented to: Person Cognitive Function: Fair Patient Appearance: Well Groomed Mood: Apprehensive Affect: Mood Congruent Patient Behavior: Cooperative Speech Pattern: Appropriate Voice Loudness: Normal Thought Process: Goal Oriented Thought Disorder: Being Controlled Hallucinations: Denies Suicidal Ideation: Denies Homicidal Ideation: Denies Insight/Judgement: Fair Sleep: Difficulty falling asleep Appetite: Weight gain Muscle strength/Tone: Normal Gait/Station: Normal Additional Comments: Seroquel 100mg po qhs Psychiatric Treatment Plan - Problem List (1) Alcohol dependence with uncomplicated withdrawal Current Visit: Yes (2) Nicotine dependence Current Visit: Yes Qualifiers: Nicotine product type: cigarettes Substance use status: uncomplicated Qualified Code(s): F17.210 - Nicotine dependence, cigarettes, uncomplicated (3) Substance induced mood disorder Current Visit: Yes (4) Cocaine dependence Current Visit: Yes Qualifiers: Substance use status: uncomplicated Qualified Code(s): F14.20 - Cocaine dependence, uncomplicated (5) Non-compliant patient Current Visit: Yes Comment: Corroborated by self-report : did not take medications for weeks. (6) PTSD (post-traumatic stress disorder) Current Visit: Yes (7) Schizoaffective disorder Current Visit: Yes (8) Anxiety Current Visit: No (9) Arthritis Current Visit: No (10) Cervical radiculopathy Current Visit: No (11) Chest pain Current Visit: No (12) EtOH dependence Current Visit: No (13) Fibroid uterus Current Visit: No (14) History of hysterectomy for benign disease Current Visit: No (15) Bipolar 1 disorder Current Visit: No (16) Bronchial asthma Current Visit: No Qualifiers: Asthma severity: mild Asthma persistence: intermittent Asthma complication type: unspecified Qualified Code(s): J45.20 - Mild intermittent asthma, uncomplicated (17) HTN (hypertension) Current Visit: No Qualifiers: Hypertension type: essential hypertension Qualified Code(s): I10 - Essential (primary) hypertension (18) Scoliosis Current Visit: No Initial treatment plan: Seroquel 100mg po qhs
[2018-06-27] MEDS: ALBUTEROL SO4 8 GM HFA INHALER IH PRN (19:25)
[2018-06-27] MEDS: THIAMINE HCL 100 MG TABLET (FP) PO SCH (21:35)
[2018-06-27] MEDS ORDERED: QUEtiapine FUMARATE 100 MG TABLET (FP) PO SCH (22:00)
--- NOTE | 2018-06-28 09:02 | DS ---
[facility] Detox Discharge Summary Admission Date: 06/24/18 Discharge Date: 06/28/18 - History Present History: Alcohol Dependence - Physical Exam Results Vital Signs: Vital Signs Temperature 97.3 F L 06/28/18 06:51 Pulse Rate 62 06/28/18 06:51 Respiratory Rate 18 06/28/18 06:51 Blood Pressure 139/82 06/28/18 06:51 O2 Sat by Pulse Oximetry (%) - Treatment Hospital Course: Detox Protocol Followed, Detoxed Safely, Responded well, Discharged Condition Good, Rehab Referral Accepted - Medication Discharge Medications: Ambulatory Orders Zolpidem Tartrate [Ambien] 10 mg PO HS 04/19/15 Naproxen [Naprosyn -] 500 mg PO BID 06/22/18 Quetiapine Fumarate [Seroquel -] 200 mg PO HS 06/22/18 Albuterol Sulfate Inhaler - [Ventolin HFA Inhaler -] 2 puff IH Q4H PRN #1 inhaler 06/26/18 Amlodipine Besylate [Norvasc -] 10 mg PO DAILY 06/26/18 Amlodipine Besylate [Norvasc -] 10 mg PO DAILY #14 tablet 06/26/18 Clonidine HCl [Catapres] 0.2 mg PO BID 06/26/18 Losartan/Hydrochlorothiazide [Losartan-Hctz 50-12.5 mg Tab] 1 each PO DAILY #14 tablet 06/26/18 cloNIDine HCL [Catapres -] 0.2 mg PO BID #14 tablet 06/26/18 Quetiapine Fumarate [Seroquel] 100 mg PO HS #30 tablet 06/27/18 - Diagnosis (1) Alcohol dependence with uncomplicated withdrawal Current Visit: Yes Status: Chronic (2) Nicotine dependence Current Visit: Yes Status: Chronic Qualifiers: Nicotine product type: cigarettes Substance use status: uncomplicated Qualified Code(s): F17.210 - Nicotine dependence, cigarettes, uncomplicated (3) Substance induced mood disorder Current Visit: Yes Status: Acute (4) Cocaine dependence Current Visit: Yes Status: Chronic Qualifiers: Substance use status: uncomplicated Qualified Code(s): F14.20 - Cocaine dependence, uncomplicated (5) Non-compliant patient Current Visit: Yes Status: Chronic (6) PTSD (post-traumatic stress disorder) Current Visit: Yes Status: Chronic (7) Schizoaffective disorder Current Visit: Yes Status: Chronic (8) Anxiety Current Visit: No Status: Acute (9) Arthritis Current Visit: No Status: Acute (10) Cervical radiculopathy Current Visit: No Status: Acute (11) Chest pain Current Visit: No Status: Acute (12) Fibroid uterus Current Visit: No Status: Acute (13) History of hysterectomy Current Visit: No Status: Acute (14) History of hysterectomy for benign disease Current Visit: No Status: Acute (15) Bipolar 1 disorder Current Visit: No Status: Chronic (16) Bronchial asthma Current Visit: No Status: Chronic Qualifiers: Asthma severity: mild Asthma persistence: intermittent Asthma complication type: unspecified Qualified Code(s): J45.20 - Mild intermittent asthma, uncomplicated (17) HTN (hypertension) Current Visit: Yes Status: Chronic Qualifiers: Hypertension type: essential hypertension Qualified Code(s): I10 - Essential (primary) hypertension (18) Scoliosis Current Visit: No Status: Chronic - AMA Did Patient Leave Against Medical Advice: No
[2018-06-28 09:40] VITALS: BP 143/70; PULSE 72; TEMP 97.7
[2018-06-28] MEDS: cloNIDine HCL 0.1 MG TABLET PO SCH (10:45)
[2018-06-28] MEDS: NAPROXEN 500 MG TABLET (FP) PO SCH (10:45)
[2018-06-28] MEDS: amLODIPine BESYLATE 10 MG TABLET (FP) PO SCH (10:45)
[2018-06-28] MEDS: PRENATAL VITAMINS W/ FOLIC ACID TABLET (FP) PO SCH (10:45)
[2018-06-28] MEDS: HYDROCHLOROTHIAZIDE PO SCH (10:46)
[2018-06-28] MEDS: [UNRECOGNIZED DRUG - OTHER] PO SCH (10:46)
[2018-06-28] MEDS: LOSARTAN PO SCH (10:46)
[2018-06-28] MEDS: NICOTINE 21 MG/24 HOURS TOPICAL PATCH TD SCH (10:47)
== END 2018-06-28 11:00 | disposition home or self-care (01) | DRG 897 ==
LOC: YASAS 12:14 → Y6N 12:37
PROC: HZ2ZZZZ Detoxification Services for Substance Abuse Treatment (ICD-10-PCS; principal; 2018-06-24)
DX: F10.230 Alcohol dependence with withdrawal, uncomplicated (principal); F14.20 Cocaine dependence, uncomplicated; F31.89 Other bipolar disorder; F17.210 Nicotine dependence, cigarettes, uncomplicated; F43.10 Post-traumatic stress disorder, unspecified; F41.9 Anxiety disorder, unspecified; F25.9 Schizoaffective disorder, unspecified; F19.24 Other psychoactive substance dependence with psychoactive substance-induced mood disorder; I10 Essential (primary) hypertension; M17.0 Bilateral primary osteoarthritis of knee; M54.12 Radiculopathy, cervical region; J45.20 Mild intermittent asthma, uncomplicated; R07.9 Chest pain, unspecified; M41.9 Scoliosis, unspecified; Z91.14 Patient's other noncompliance with medication regimen; Z90.710 Acquired absence of both cervix and uterus
CPT/HCPCS: 36415; 80053; 85027; 86593; 87389; J0735

== ENCOUNTER 2022-11-25 11:40 | Inpatient (IN) | payer OTHER ==
[2022-11-25 12:14] VITALS: BMI 22.3
[2022-11-25] MEDS ORDERED: MAGNESIUM HYDROX 2400MG/30ML ORAL SUSPENSION 30 ML CUP PO PRN (13:43)
[2022-11-25] MEDS ORDERED: IBUPROFEN 600 MG TABLET (FP) PO PRN (13:43)
[2022-11-25] MEDS ORDERED: BENZOCAINE/MENTHOL (CHLORASEPTIC ) LOZENGE MM PRN (13:43)
[2022-11-25] MEDS ORDERED: NICOTINE 10 MG CARTRIDGE (INHALER) IH PRN (13:43)
[2022-11-25] MEDS ORDERED: IBUPROFEN 400 MG TABLET (FP) PO PRN (13:43)
[2022-11-25] MEDS ORDERED: NICOTINE POLACRILEX 2 MG GUM BUC PRN (13:43)
[2022-11-25] MEDS ORDERED: LOPERAMIDE HCL 2 MG CAPSULE PO PRN (13:43)
[2022-11-25] MEDS ORDERED: ACETAMINOPHEN 325 MG TABLET (FP) PO PRN (13:43)
[2022-11-25] MEDS ORDERED: NICOTINE 14 MG/24 HOURS TOPICAL PATCH TD PRN (13:43)
[2022-11-25] MEDS ORDERED: MAG HYDROX/AL HYDROX/SIMETH 30 ML UNIT-DOSE CUP PO PRN (13:43)
[2022-11-25] MEDS ORDERED: BENZONATATE 200 MG CAPSULE PO PRN (13:43)
[2022-11-25] MEDS ORDERED: POLYETHYLENE GLYCOL (HEALTHYLAX) 3350 17 GM PACKET PO PRN (13:43)
[2022-11-25] MEDS ORDERED: guaiFENesin 600 MG TABLET.ER (FP) PO PRN (13:43)
[2022-11-25] MEDS ORDERED: ALBUTEROL SO4 HFA INHALER IH PRN (13:46)
[2022-11-25] MEDS ORDERED: amLODIPine BESYLATE 10 MG TABLET (FP) PO ONE (13:48)
[2022-11-25] MEDS ORDERED: LOSARTAN POTASSIUM 50 MG TABLET PO ONE (13:49)
[2022-11-25] MEDS ORDERED: amLODIPine BESYLATE 5 MG TABLET (FP) ONE (14:27)
[2022-11-25] MEDS ORDERED: TUBERCULIN PPD 5 TU/0.1ML SYRINGE (IN PATIENT USE ONLY) ID ONE (15:00)
[2022-11-25] MEDS ORDERED: HYDROCHLOROTHIAZIDE 12.5 MG CAPSULE (FP) PO ONE (15:36)
[2022-11-25 17:20] LABS: HEMATOCRIT 32.3 % (32.4-45.2); HEMOGLOBIN 10.8 GM/dL (10.7-15.3); MCH 26.8 pg (25.7-33.7); MCHC 33.4 g/dl (32.0-36.0); MEAN CELL VOLUME 80.1 fl (80-96); MEAN PLT VOLUME 9.5 fl (7.5-11.1); PLATELET COUNT 162 10^3/uL (134-434); RBC 4.03 M/mm3 (3.60-5.2); RDW 14.9 % (11.6-15.6); WHITE BLOOD COUNT 4.4 K/mm3 (4.0-10.0)
[2022-11-25] MEDS: hydrOXYzine PAMOATE 25 MG CAPSULE (FP) PO PRN (17:32)
[2022-11-25 17:37] LABS: POTASSIUM 4.3 mmol/L (3.5-5.1)
[2022-11-25 17:40] LABS: CALCIUM 10.3 mg/dL (8.5-10.1)
[2022-11-25 17:41] LABS: ALBUMIN 3.5 g/dl (3.4-5.0); BLOOD UREA NITROGEN 31.9 mg/dL (7-18)
[2022-11-25 17:44] LABS: CREATININE 1.5 mg/dL (0.55-1.3)
[2022-11-25 17:45] LABS: TOT PROT 6.6 g/dl (6.4-8.2)
[2022-11-25 17:46] LABS: BILIRUBIN,TOTAL 0.5 mg/dL (0.2-1)
[2022-11-25 18:37] LABS: SYPHILIS W/ RPR CONF REACTIVE (NONREACTIVE)
[2022-11-25] MEDS ORDERED: LISINOPRIL 20 MG TABLET PO ONE (19:04)
[2022-11-25] MEDS: THIAMINE HCL 100 MG TABLET (FP) PO SCH (21:46)
[2022-11-25] MEDS ORDERED: MELATONIN 5 MG TABLETS PO SCH (22:00)
[2022-11-25] MEDS ORDERED: cloNIDine HCL 0.1 MG TABLET PO ONE (22:41)
[2022-11-26] MEDS ORDERED: PATIENT'S OWN MEDICATION (NON-FORMULARY) (Hydrochlorothiazide [Hydrochlorothiazide] 12.5 M PO SCH (10:00)
[2022-11-26] MEDS: LOSARTAN POTASSIUM 50 MG TABLET PO SCH (10:41)
[2022-11-26] MEDS: HYDROCHLOROTHIAZIDE 12.5 MG CAPSULE (FP) PO SCH (10:41)
[2022-11-26] MEDS: amLODIPine BESYLATE 10 MG TABLET (FP) PO SCH (10:42)
[2022-11-26] MEDS: PRENATAL VITAMINS W/ FOLIC ACID TABLET (FP) PO SCH (10:42)
[2022-11-26] MEDS ORDERED: HYDROCHLOROTHIAZIDE 12.5 MG CAPSULE (FP) PO ONE (13:52)
[2022-11-26] MEDS: hydrOXYzine PAMOATE 25 MG CAPSULE (FP) PO PRN (19:12)
[2022-11-26] MEDS: THIAMINE HCL 100 MG TABLET (FP) PO SCH (21:24)
[2022-11-26] MEDS: QUEtiapine FUMARATE 50 MG TABLET PO SCH (21:24)
[2022-11-26] MEDS: cloNIDine HCL 0.1 MG TABLET PO SCH (21:24)
[2022-11-26] MEDS ORDERED: cloNIDine HCL 0.1 MG TABLET PO SCH (22:00)
[2022-11-27] MEDS: amLODIPine BESYLATE 10 MG TABLET (FP) PO SCH (11:22)
[2022-11-27] MEDS: PRENATAL VITAMINS W/ FOLIC ACID TABLET (FP) PO SCH (11:22)
[2022-11-27] MEDS: cloNIDine HCL 0.1 MG TABLET PO SCH ×2 (11:23→21:29)
[2022-11-27] MEDS: LOSARTAN POTASSIUM 50 MG TABLET PO SCH (11:23)
[2022-11-27] MEDS: HYDROCHLOROTHIAZIDE 12.5 MG CAPSULE (FP) PO SCH (11:23)
[2022-11-27 15:59] LABS: EPI CELLS 9 /uL (0-25.1); HYALINE CASTS 0 /uL (0-3.1); PH,URINE 5.5 (5.0-8.0); URINE APPEARANCE CLEAR; URINE BACTERIA 74 /uL (0-1359); URINE BILIRUBIN NEGATIVE (NEGATIVE); URINE COLOR YELLOW; URINE GLUCOSE (UA) NEGATIVE (NEGATIVE); URINE KETONE NEGATIVE (NEGATIVE); URINE LEUK ESTERASE TRACE (NEGATIVE); URINE NITRITE NEGATIVE (NEGATIVE); URINE PROTEIN NEGATIVE (NEGATIVE); URINE RBC 21 /uL (0-23.9); URINE UROBILINOGEN 0.2 mg/dL (0.2-1.0); URINE WBC 4 /uL (0-25.8)
[2022-11-27] MEDS: QUEtiapine FUMARATE 50 MG TABLET PO SCH (21:29)
[2022-11-27] MEDS: THIAMINE HCL 100 MG TABLET (FP) PO SCH (21:30)
[2022-11-28] MEDS: LOSARTAN POTASSIUM 50 MG TABLET PO SCH (10:27)
[2022-11-28] MEDS: PRENATAL VITAMINS W/ FOLIC ACID TABLET (FP) PO SCH (10:27)
[2022-11-28] MEDS: HYDROCHLOROTHIAZIDE 12.5 MG CAPSULE (FP) PO SCH (10:28)
[2022-11-28] MEDS: amLODIPine BESYLATE 10 MG TABLET (FP) PO SCH (10:28)
[2022-11-28] MEDS: cloNIDine HCL 0.1 MG TABLET PO SCH (10:31)
[2022-11-28] MEDS: THIAMINE HCL 100 MG TABLET (FP) PO SCH (21:08)
[2022-11-28] MEDS: hydrOXYzine PAMOATE 25 MG CAPSULE (FP) PO PRN (21:08)
[2022-11-28] MEDS: QUEtiapine FUMARATE 50 MG TABLET PO SCH (21:08)
[2022-11-28] MEDS: cloNIDine HCL 0.1 MG TABLET PO PRN (23:08)
[2022-11-29] MEDS: PRENATAL VITAMINS W/ FOLIC ACID TABLET (FP) PO SCH (10:34)
[2022-11-29] MEDS: HYDROCHLOROTHIAZIDE 12.5 MG CAPSULE (FP) PO SCH (10:35)
[2022-11-29] MEDS: LOSARTAN POTASSIUM 50 MG TABLET PO SCH (10:35)
[2022-11-29] MEDS: amLODIPine BESYLATE 10 MG TABLET (FP) PO SCH (10:35)
[2022-11-29] MEDS: cloNIDine HCL 0.1 MG TABLET PO PRN ×2 (12:18→21:34)
[2022-11-29] MEDS: hydrOXYzine PAMOATE 25 MG CAPSULE (FP) PO PRN ×2 (12:19→19:17)
[2022-11-29] MEDS: THIAMINE HCL 100 MG TABLET (FP) PO SCH (21:33)
[2022-11-29] MEDS: QUEtiapine FUMARATE 50 MG TABLET PO SCH (21:34)
[2022-11-30 06:49] VITALS: BP 157/88; PULSE 67; RESP 18; TEMP 97.5
[2022-11-30] MEDS: LOSARTAN POTASSIUM 50 MG TABLET PO SCH (10:35)
[2022-11-30] MEDS: PRENATAL VITAMINS W/ FOLIC ACID TABLET (FP) PO SCH (10:35)
[2022-11-30] MEDS: HYDROCHLOROTHIAZIDE 12.5 MG CAPSULE (FP) PO SCH (10:35)
[2022-11-30] MEDS: amLODIPine BESYLATE 10 MG TABLET (FP) PO SCH (10:35)
[2022-11-30] MEDS: hydrOXYzine PAMOATE 25 MG CAPSULE (FP) PO PRN (10:36)
== END 2022-11-30 11:15 | disposition home or self-care (01) | DRG 895 ==
LOC: YASAS 11:40 → Y5N 16:34
PROVIDERS: ADMIT Allergy & Immunology; ATTEND Psychiatry & Neurology Pain Medicine
PROC: HZ42ZZZ Group Counseling for Substance Abuse Treatment, Cognitive-Behavioral (ICD-10-PCS; principal; 2022-11-25)
DX: F10.20 Alcohol dependence, uncomplicated (principal); F14.20 Cocaine dependence, uncomplicated; F17.210 Nicotine dependence, cigarettes, uncomplicated; F31.9 Bipolar disorder, unspecified; F41.8 Other specified anxiety disorders; I10 Essential (primary) hypertension; J44.9 Chronic obstructive pulmonary disease, unspecified; R63.4 Abnormal weight loss; Z68.22 Body mass index [BMI] 22.0-22.9, adult
CPT/HCPCS: 26055; 36415; 80053; 81003; 85027; 86593; 86780; 86803; 87491; 87591; 87661; 93005; 93010; C9803-CS; U0003; U0005

== ENCOUNTER 2024-01-15 13:21 | Inpatient (IN) | payer OTHER ==
[2024-01-15 15:31] VITALS: BMI 18.7
[2024-01-15] MEDS ORDERED: cloNIDine HCL 0.1 MG TABLET PO PRN (16:14)
[2024-01-15] MEDS ORDERED: cloNIDine HCL 0.1 MG TABLET ONE (16:36)
[2024-01-15] MEDS: cloNIDine HCL 0.1 MG TABLET PO ONE ×2 (16:42→21:51)
[2024-01-15] MEDS ORDERED: NALOXONE HCL 0.4 MG/ML VIAL IM PRN (17:28)
[2024-01-15] MEDS ORDERED: MAGNESIUM HYDROX 2400MG/30ML ORAL SUSPENSION 30 ML CUP PO PRN (17:28)
[2024-01-15] MEDS ORDERED: BENZONATATE 200 MG CAPSULE PO PRN (17:28)
[2024-01-15] MEDS ORDERED: ACETAMINOPHEN 325 MG TABLET (FP) PO PRN (17:28)
[2024-01-15] MEDS ORDERED: BENZOCAINE/MENTHOL (CHLORASEPTIC ) LOZENGE MM PRN (17:28)
[2024-01-15] MEDS ORDERED: MAG HYDROX/AL HYDROX/SIMETH 30 ML UNIT-DOSE CUP PO PRN (17:28)
[2024-01-15] MEDS ORDERED: NALOXONE HCL (KLOXXADO) 8 MG SPRAY NS PRN (17:28)
[2024-01-15] MEDS ORDERED: IBUPROFEN 400 MG TABLET (FP) PO PRN (17:28)
[2024-01-15] MEDS ORDERED: LOPERAMIDE HCL 2 MG CAPSULE PO PRN (17:28)
[2024-01-15] MEDS ORDERED: POLYETHYLENE GLYCOL (HEALTHYLAX) 3350 17 GM PACKET PO PRN (17:28)
[2024-01-15] MEDS ORDERED: guaiFENesin 600 MG TABLET.ER (FP) PO PRN (17:28)
[2024-01-15] MEDS ORDERED: IBUPROFEN 600 MG TABLET (FP) PO ONE (17:50)
[2024-01-15] MEDS: IBUPROFEN 600 MG TABLET (FP) PO PRN (17:53)
[2024-01-15] MEDS: LOSARTAN POTASSIUM 50 MG TABLET PO SCH (18:41)
[2024-01-15] MEDS: HYDROCHLOROTHIAZIDE 12.5 MG CAPSULE (FP) PO SCH (18:41)
[2024-01-15] MEDS: hydrOXYzine PAMOATE 25 MG CAPSULE (FP) PO PRN (18:50)
[2024-01-15] MEDS: MELATONIN 5 MG TABLETS PO SCH (21:05)
[2024-01-15] MEDS: THIAMINE 100 MG TABLET PO SCH (21:05)
[2024-01-15] MEDS: ASPIRIN 81 MG CHEWABLE TABLETS PO ONE (21:51)
[2024-01-15] MEDS: metroNIDAZOLE 500 MG TABLET PO SCH (21:57)
[2024-01-16] MEDS: amLODIPine BESYLATE 10 MG TABLET (FP) PO SCH (10:00)
[2024-01-16] MEDS: PRENATAL VITAMINS W/ FOLIC ACID TABLET (FP) PO SCH (10:00)
[2024-01-16 12:04] LABS: HEMATOCRIT 30.7 % (32.4-45.2); HEMOGLOBIN 10.5 GM/dL (10.7-15.3); MCH 27.2 pg (25.7-33.7); MEAN PLT VOLUME 9.2 fl (7.5-11.1); PLATELET COUNT 180 10^3/uL (134-434); RBC 3.84 M/mm3 (3.60-5.2); RDW 15.2 % (11.6-15.6); WHITE BLOOD COUNT 3.4 K/mm3 (4.0-10.0)
[2024-01-16 12:13] LABS: CHLORIDE 111 mmol/L (98-107); POTASSIUM 3.6 mmol/L (3.5-5.1); SODIUM 141 mmol/L (136-145)
[2024-01-16 12:14] LABS: EPI CELLS 33 /uL (0-25.1); HYALINE CASTS 0 /uL (0-3.1); PH,URINE 5.5 (5.0-8.0); URINE APPEARANCE CLEAR; URINE BACTERIA 313 /uL (0-1359); URINE BILIRUBIN NEGATIVE (NEGATIVE); URINE COLOR YELLOW; URINE GLUCOSE (UA) NEGATIVE (NEGATIVE); URINE KETONE NEGATIVE (NEGATIVE); URINE LEUK ESTERASE 1+ (NEGATIVE); URINE NITRITE NEGATIVE (NEGATIVE); URINE PROTEIN NEGATIVE (NEGATIVE); URINE RBC 4 /uL (0-23.9); URINE UROBILINOGEN 0.2 mg/dL (0.2-1.0); URINE WBC 61 /uL (0-25.8)
[2024-01-16 12:27] LABS: CALCIUM 9.2 mg/dL (8.5-10.1)
[2024-01-16 12:28] LABS: ALBUMIN 2.8 g/dl (3.4-5.0); ANION GAP 5 mmol/L (4-13); BLOOD UREA NITROGEN 30.2 mg/dL (7-18); CO2 25 mmol/L (21-32); GLUCOSE,RANDOM 109 mg/dL (74-106)
[2024-01-16 12:31] LABS: CREATININE 1.5 mg/dL (0.55-1.3); SGOT/AST 26 U/L (15-37); SGPT/ALT 31 U/L (13-61)
[2024-01-16 12:33] LABS: TOT PROT 5.4 g/dl (6.4-8.2)
[2024-01-16 12:34] LABS: BILIRUBIN,TOTAL 0.6 mg/dL (0.2-1)
[2024-01-16 12:36] LABS: ALK PHOS 171 U/L (45-117)
[2024-01-16 13:17] LABS: SYPHILIS W/ RPR CONF REACTIVE (NONREACTIVE)
[2024-01-16] MEDS: cloNIDine HCL 0.1 MG TABLET PO PRN (17:29)
[2024-01-16] MEDS: QUEtiapine FUMARATE 50 MG TABLET PO SCH (21:08)
[2024-01-17] MEDS: metroNIDAZOLE 250 MG TABLET PO SCH (09:40)
[2024-01-18] MEDS: HYDROCHLOROTHIAZIDE 12.5 MG CAPSULE (FP) PO SCH (05:43)
[2024-01-18] MEDS: LOSARTAN POTASSIUM 50 MG TABLET PO SCH (05:43)
[2024-01-18] MEDS: amLODIPine BESYLATE 10 MG TABLET (FP) PO SCH (05:43)
[2024-01-18] MEDS: ALBUTEROL SO4 HFA INHALER IH PRN (11:56)
[2024-01-19] MEDS: amLODIPine BESYLATE 10 MG TABLET (FP) PO SCH (09:19)
[2024-01-19] MEDS: HYDROCHLOROTHIAZIDE 12.5 MG CAPSULE (FP) PO SCH (09:20)
[2024-01-19] MEDS ORDERED: cloNIDine HCL 0.1 MG TABLET PO PRN (12:55)
[2024-01-19] MEDS: cloNIDine HCL 0.1 MG TABLET PO ONE ×2 (13:06→13:09)
[2024-01-19] MEDS ORDERED: ALBUTEROL SO4 0.083% IH SOL 2.5 MG/3 ML VIAL.NEB. NEB PRN (17:52)
[2024-01-19] MEDS: QUEtiapine FUMARATE 200 MG TABLET PO SCH (21:09)
[2024-01-19] MEDS ORDERED: cloNIDine HCL 0.1 MG TABLET PO SCH (22:00)
[2024-01-22] MEDS: cloNIDine HCL 0.1 MG TABLET PO PRN (09:33)
[2024-01-23 07:19] VITALS: RESP 18
[2024-01-24 07:10] VITALS: TEMP 97.3
[2024-01-24 11:02] VITALS: BP 150/71; PULSE 81
== END 2024-01-24 16:45 | disposition home or self-care (01) | DRG 895 ==
LOC: YASAS 13:21 → Y3NR 18:07 → Y5N 01-19 18:36
PROVIDERS: ADMIT Allergy & Immunology; ATTEND Psychiatry & Neurology Pain Medicine
PROC: HZ42ZZZ Group Counseling for Substance Abuse Treatment, Cognitive-Behavioral (ICD-10-PCS; principal; 2024-01-15)
DX: F14.20 Cocaine dependence, uncomplicated (principal); F17.210 Nicotine dependence, cigarettes, uncomplicated; F31.9 Bipolar disorder, unspecified; F41.8 Other specified anxiety disorders; F43.10 Post-traumatic stress disorder, unspecified; I25.10 Atherosclerotic heart disease of native coronary artery without angina pectoris; I10 Essential (primary) hypertension; J45.909 Unspecified asthma, uncomplicated; Z86.39 Personal history of other endocrine, nutritional and metabolic disease; Z86.19 Personal history of other infectious and parasitic diseases
CPT/HCPCS: 36415; 71045-TC-FY; 80053; 80305; 80307; 81003; 81025; 85027; 86593; 86780; 86803; 93005; 93010